=== PATIENT | male | born 1955 | race Caucasian/White ===

== ENCOUNTER → 2019-01-13 09:17 | Outpatient (CLI) | payer MEDICARE, OTHER, SELFPAY ==
[2019-01-13 12:16] LABS: Absolute Lymphocyte Count 1.78 X10^3/ul (0.83-4.51); Absolute Neutrophil Count 3.3 X10^3/uL (2.0-7.7); Basophil# 0.01 X10^3/uL; Basophil% 0.2 % (0-1); Eosinophil# 0.11 X10^3/uL; Eosinophils% 1.9 % (0-5); Hematocrit 44.9 % (40-54); Hemoglobin 15.1 g/dl (13.0-16.5); Lymphocyte # 1.78 X10^3/ul (4.0); Lymphocyte % 30.5 % (19-41); Mean Corp Hgb Conc 33.6 g/gl (32-36); Mean Corpuscular Hgb 30.1 pg (27.0-32.0); Mean Corpuscular Volume 89.6 fL (80-94); Mean Platelet Vol. 11.3 fl (6.2-12.0); Monocyte# 0.65 X10^3/uL; Monocyte% 11.1 % (0-10); Neutrophil # 3.25 X10^3/uL (2.7-7.7); Neutrophil % 55.8 % (47-70); Platelet Count 211 K/mm3 (150-450); RBC Distribution Width CV 13.3 % (11.6-14.6); RBC Distribution Width SD 43.2 fl (35.1-43.9); Red Blood Count 5.01 M/mm3 (4.6-6.2); White Blood Count 5.8 K/mm3 (4.4-11.0)
[2019-01-13 12:18] LABS: POSITIVE COUNT NO; POSITIVE DIFFERENTIAL NO; POSITIVE MORPHOLOGY NO
[2019-01-13 12:39] LABS: ALB/GLOB Ratio 0.9 RATIO (0.9-2.4); AST(SGOT) 28 U/L (15-37); Alanine Aminotransfer ALT/SGPT 52 U/L (16-61); Albumin, Serum 3.6 g/dL (3.2-5.0); Alkaline Phosphatase 66 U/L (45-117); Anion Gap 10 (5-15); BUN 23 mg/dL (7-18); Calcium,Total 8.8 mg/dL (8.5-10.1); Chloride 106 mmol/L (98-107); Cholesterol 191 mg/dL (200); Creatinine, Serum 1.28 mg/dL (0.70-1.30); EST Glomerular Filtration Rate 60 mL/min (>60); Est Glom Filt Rate - Afr Amer 73 mL/min (>60); Globulin 3.8 g/dL (2.2-4.2); Glucose 106 mg/dL (74-106); High Density Lipoprotein 33 mg/dL; PSA,Total - Annual Screen 1.37 ng/mL (0.00-4.00); Potassium 4.3 mmol/L (3.5-5.1); Protein, Total 7.4 g/dL (6.4-8.2); Sodium Level 141 mmol/L (136-145); Triglycerides 369 mg/dL; Very Low Density Lipoprotein 74 mg/dL (5-40)
== END ==
PROVIDERS: Family Provider Family Medicine; PCP Family Medicine; Visit Provider Family Medicine
DX: I10 Essential (primary) hypertension (principal); E78.5 Hyperlipidemia, unspecified; Z12.5 Encounter for screening for malignant neoplasm of prostate
CPT/HCPCS: 36415; 80053; 80061; 84153; 85025; G0103

== ENCOUNTER → 2019-01-15 08:09 | Outpatient (CLI) | payer MEDICARE, OTHER, SELFPAY ==
[2018-02-12 15:33] VITALS: BMI 31.9
--- NOTE | 2019-01-15 08:12 | US_ITS ---
PROCEDURES: ULTRASOUND AORTA REASON FOR EXAM: Male, 63 years old. Abdominal aortic aneurysm screening. History of smoking. TECHNIQUE: Ultrasound evaluation of the aorta was performed with real-time and static renee-scale imaging. COMPARISON: None. FINDINGS: There is no elongation or tortuosity of the abdominal aorta. Aorta measures: Proximal 2.4 cm. Middle 1.2 cm. Distal 1.1 cm. Aorta measure transversely: Proximal 2.5 cm. Middle 1.7 cm. Distal 1.6 cm. Right iliac artery measures: 0.7 cm. Right iliac artery measure transversely: 0.8 cm. Left iliac artery measures: 0.7 cm. Left iliac artery measure transversely: 0.9 cm. Incidental note is made of 2 simple right renal cysts. These measure 5.4 x 4.8 x 4.7 and 6.5 x 6.8 x 7.2. Both of these are anechoic with enhanced through transmission and sharp, smooth and mildly echogenic margins. US/US ABD AORTA SCREEN/AAA IMPRESSION: No sonographically evident abdominal aortic aneurysm or focal ectasia. Incidental note of large simple right renal cysts as above. Electronically Signed: Laureano Luna MD at 7:32 EDT , Service support ,
== END ==
PROVIDERS: Family Provider Family Medicine; PCP Family Medicine; Referring Provider Family Medicine; Visit Provider Family Medicine
DX: I10 Essential (primary) hypertension (principal); Z13.6 Encounter for screening for cardiovascular disorders
CPT/HCPCS: 76706

== ENCOUNTER 2019-01-21 06:25 | Day surgery (SDC) | payer MEDICARE, OTHER, SELFPAY ==
[2019-01-21] VITALS (7 sets, daily range): BP systolic 93–128; BP diastolic 72–90; PULSE 80–109; RESP 16; TEMP 36.2–36.6; O2SAT 93–97; BMI 31.9
--- NOTE | 2019-01-21 07:29 | PCM.HP.STD ---
Problem List (1) Screening for colon cancer Status: Acute History of Present Illness Date of Admission: 01/21/19 The patient is a 63 year old M who presents for screening colonoscopy. He has never had a colonoscopy in the past. Past Medical History Medical History: Medical History (Last Reviewed 01/21/19 @ 07:29 by Isac Woodard MD) History of pneumothorax Z87.09 Osteoarthritis M19.90 Ventral hernia with bowel obstruction K43.6 Hypertension I10 Allergies No Known Allergies Allergy (Verified 09/28/17 11:51) Home Medications: Ambulatory Orders Medication Instructions Recorded Lisinopril [Zestril] 40 mg PO DAILY 04/09/17 Surgical History: Surgical History (Last Reviewed 01/21/19 @ 07:29 by Isac Woodard MD) H/O hernia repair Z98.890, Z87.19 ventral hernia repair 2017 Smoking Status: Former smoker - *Family History Maternal History Items: No pertinent history Review of Systems Constitutional: Denies: Chills, Fever, Weight Change Cardiovascular: Denies: Chest Pain, Chest Pressure, Chest Tightness, Palpitations Respiratory: Denies: Cough, Hemoptysis, Shortness of breath at rest, Shortness of breath upon exertion, Wheezing Gastrointestinal: Denies: Abdominal Pain, Constipation, Diarrhea, Hematemesis, Nausea, Melena, Vomiting VTE Information - Inpt Only VTE Present on Admission: No VTE Mechan Device Prophylaxis: None VTE Pharm Prophylaxis ordered?: No Reason prophylaxis not ordered:: Treatment Not Indicated Patient Problems: Active and Suspected Problems (Last Updated 02/13/18 @ 13:02 by Alison Pereira NP-Tony) Screening for colon cancer (Acute) - Physical Exam General: Alert, Oriented x3 Lungs: Clear to auscultation Cardiovascular: Regular rate, Regular Rhythm, No murmurs Abdomen: Bowel Sounds Present, Soft, Non Tender, Non-Distended Vital Signs Temp Pulse Resp BP Pulse Ox 97.9 F 109 H 16 103/90 H 97 01/21/19 06:46 01/21/19 06:46 01/21/19 06:46 01/21/19 06:46 01/21/19 06:46 Oxygen Delivery Method Room Air Weight: 210 lb Body Mass Index (BMI) 31.9 Assessment/Plan All Active Problems (Last Updated 02/13/18 @ 13:02 by Alison Pereira NP-C) Screening for colon cancer (Acute) Otitis media, right (Acute) Hyperkeratosis (Acute) Incarcerated ventral hernia (Acute) My plan is to perform a colonoscopy. Risk and benefits to include bleeding possible perforation of the colon up to and including have been discussed patient agrees to proceed.
--- NOTE | 2019-01-21 07:58 | OP.ENDO_ITS ---
01/21/2019 Lianne Pascal [place] [id number] [address] Re : Colonoscopy procedure for Riley Dorado Dear Dr. Pascal This procedure was performed on Monday, January 21, 2019. My impressions and recommendations are as follows: Impressions : - Diverticulosis in the sigmoid colon. No specimens collected. - Non-bleeding internal hemorrhoids. - The examination was otherwise normal. Recommendations : - Discharge patient to home. - Resume previous diet. - Continue present medications. - Repeat colonoscopy in 10 years for screening purposes. - Return to primary care physician (date not yet determined). My findings are described in the full procedure note, which is enclosed. If I can be of further assistance, please feel free to contact me at Doctor phone number(s): , Fax: [phone], Work: . Sincerely, MD Isac Connelly MD 01/21/2019 7:57:26 AM This report has been signed electronically.
== END 2019-01-21 08:49 | disposition home or self-care (01) ==
LOC: EN 06:26 → AC 06:26
PROVIDERS: Family Provider Family Medicine; PCP Family Medicine; Referring Provider Family Medicine; Visit Provider Surgery
PROC: 0DJD8ZZ Inspection of Lower Intestinal Tract, Via Natural or Artificial Opening Endoscopic (ICD-10-PCS; CPT 45378; principal; 2019-01-21 07:25)
DX: Z12.11 Encounter for screening for malignant neoplasm of colon (principal); K57.30 Diverticulosis of large intestine without perforation or abscess without bleeding; K64.8 Other hemorrhoids; I10 Essential (primary) hypertension; M19.90 Unspecified osteoarthritis, unspecified site; Z87.891 Personal history of nicotine dependence
CPT/HCPCS: G0121; J7120

== ENCOUNTER → 2019-04-10 08:53 | Outpatient (CLI) | payer MEDICARE, OTHER, SELFPAY ==
[2019-01-21 06:46] VITALS: BMI 31.9
[2019-04-10 13:02] LABS: Cholesterol 167 mg/dL (200); High Density Lipoprotein 38 mg/dL; Triglycerides 139 mg/dL; Very Low Density Lipoprotein 28 mg/dL (5-40)
== END ==
PROVIDERS: Family Provider Family Medicine; PCP Family Medicine; Visit Provider Family Medicine
DX: E78.5 Hyperlipidemia, unspecified (principal)
CPT/HCPCS: 36415; 80061

== ENCOUNTER → 2020-03-30 08:09 | Outpatient (CLI) | payer MEDICARE, SELFPAY ==
[2019-01-21 06:46] VITALS: BMI 31.9
[2020-03-30 12:54] LABS: Absolute Lymphocyte Count 1.73 X10^3/uL (0.83-4.51); Basophil# 0.03 X10^3/uL; Basophil% 0.5 % (0-1); Eosinophil# 0.12 X10^3/uL; Eosinophils% 2.1 % (0-5); Hematocrit 45.6 % (40-54); Hemoglobin 14.9 g/dL (13.0-16.5); Lymphocyte # 1.73 X10^3/ul (4.0); Lymphocyte % 30.5 % (19-41); Mean Corp Hgb Conc 32.7 g/dL (32-36); Mean Corpuscular Hgb 30.8 pg (27.0-32.0); Mean Corpuscular Volume 94.2 fL (80-94); Mean Platelet Vol. 11.3 fl (6.2-12.0); Monocyte# 0.77 X10^3/uL; Monocyte% 13.6 % (0-10); NRBC Flagged by Analyzer 0 % (0-5); Neutrophil # 3.02 X10^3/uL (2.7-7.7); Neutrophil % 53.1 % (47-70); Platelet Count 253 K/mm3 (150-450); RBC Distribution Width CV 13.1 % (11.6-14.6); RBC Distribution Width SD 44.9 fl (35.1-43.9); Red Blood Count 4.84 M/mm3 (4.6-6.2); White Blood Count 5.7 K/mm3 (4.4-11.0)
[2020-03-30 13:15] LABS: AST(SGOT) 26 U/L (15-37); Alanine Aminotransfer ALT/SGPT 46 U/L (16-61); Albumin, Serum 3.7 g/dL (3.2-5.0); Alkaline Phosphatase 71 U/L (45-117); Anion Gap 7 (5-15); BUN 26 mg/dL (7-18); BUN/Creat Ratio 19.5 RATIO (10-20); Calcium,Total 8.6 mg/dL (8.5-10.1); Chloride 108 mmol/L (98-107); Cholesterol 205 mg/dL (200); Creatinine, Serum 1.33 mg/dL (0.70-1.30); EST Glomerular Filtration Rate 57 mL/min (>60); Est Glom Filt Rate - Afr Amer 69 mL/min (>60); Globulin 3.7 g/dL (2.2-4.2); Glucose 111 mg/dL (74-106); High Density Lipoprotein 35 mg/dL; Potassium 4.1 mmol/L (3.5-5.1); Protein, Total 7.4 g/dL (6.4-8.2); Sodium Level 138 mmol/L (136-145); Triglycerides 300 mg/dL; Very Low Density Lipoprotein 60 mg/dL (5-40)
== END ==
PROVIDERS: PCP Family Medicine; Visit Provider Family Medicine
DX: I10 Essential (primary) hypertension (principal); E78.5 Hyperlipidemia, unspecified
CPT/HCPCS: 36415; 80053; 80061; 85025

== ENCOUNTER 2021-02-22 14:22 | Outpatient (RCR) | payer MEDICARE, SELFPAY ==
[2019-01-21 06:46] VITALS: BMI 31.9
== END 2021-04-07 23:59 ==
LOC: IMMUN 14:22
PROVIDERS: PCP Family Medicine; Visit Provider Family Medicine
DX: Z23 Encounter for immunization (principal)
CPT/HCPCS: 0001A; 91300

== ENCOUNTER → 2021-04-12 07:11 | Outpatient (CLI) | payer MEDICARE, SELFPAY ==
[2019-01-21 06:46] VITALS: BMI 31.9
[2021-04-12 10:12] LABS: Absolute Lymphocyte Count 2.21 X10^3/uL (0.83-4.51); Absolute Neutrophil Count 3.5 X10^3/uL (2.0-7.7); Basophil# 0.03 X10^3/uL; Basophil% 0.4 % (0-1); Eosinophil# 0.17 X10^3/uL; Eosinophils% 2.5 % (0-5); Hematocrit 44.7 % (40-54); Hemoglobin 14.9 g/dL (13.0-16.5); Lymphocyte # 2.21 X10^3/ul (0.83-4.51); Lymphocyte % 32.7 % (19-41); Mean Corp Hgb Conc 33.3 g/dL (32-36); Mean Corpuscular Hgb 30.5 pg (27.0-32.0); Mean Corpuscular Volume 91.4 fL (80-94); Monocyte# 0.86 X10^3/uL; Monocyte% 12.7 % (0-10); NRBC Flagged by Analyzer 0 % (0-5); Neutrophil # 3.45 X10^3/uL (2.7-7.7); Neutrophil % 51.3 % (47-70); Platelet Count 260 K/mm3 (150-450); RBC Distribution Width CV 13.1 % (11.6-14.6); RBC Distribution Width SD 43.9 fl (35.1-43.9); Red Blood Count 4.89 M/mm3 (4.6-6.2); White Blood Count 6.8 K/mm3 (4.4-11.0)
[2021-04-12 10:35] LABS: ALB/GLOB Ratio 0.9 RATIO (0.9-2.4); AST(SGOT) 19 U/L (15-37); Alanine Aminotransfer ALT/SGPT 42 U/L (16-61); Albumin, Serum 3.5 g/dL (3.2-5.0); Alkaline Phosphatase 75 U/L (45-117); Anion Gap 5 (5-15); BUN 19 mg/dL (7-18); BUN/Creat Ratio 15.6 RATIO (10-20); Calcium,Total 8.7 mg/dL (8.5-10.1); Chloride 107 mmol/L (98-107); Cholesterol 221 mg/dL (200); Creatinine, Serum 1.22 mg/dL (0.70-1.30); EST Glomerular Filtration Rate 63 mL/min (>60); Est Glom Filt Rate - Afr Amer 76 mL/min (>60); Globulin 3.8 g/dL (2.2-4.2); Glucose 107 mg/dL (74-106); High Density Lipoprotein 35 mg/dL; PSA,Total - Annual Screen 5.06 ng/mL (0.00-4.00); Potassium 3.9 mmol/L (3.5-5.1); Protein, Total 7.3 g/dL (6.4-8.2); Sodium Level 139 mmol/L (136-145); Triglycerides 304 mg/dL; Very Low Density Lipoprotein 61 mg/dL (5-40)
[2021-04-12 10:37] LABS: Hemoglobin A1c 6.1 % (3.8-5.6)
== END ==
PROVIDERS: PCP Family Medicine; Referring Provider Family Medicine; Visit Provider Family Medicine
DX: I10 Essential (primary) hypertension (principal); Z12.5 Encounter for screening for malignant neoplasm of prostate; R73.01 Impaired fasting glucose; E78.5 Hyperlipidemia, unspecified
CPT/HCPCS: 36415; 80053; 80061; 83036; 84153; 85025; G0103

== ENCOUNTER → 2021-04-14 09:05 | Outpatient (CLI) | payer MEDICARE, SELFPAY ==
[2019-01-21 06:46] VITALS: BMI 31.9
[2021-04-16 11:08] LABS: PSA, Free 1.02 ng/mL; PSA, Free % 20.4 % (.)
== END ==
PROVIDERS: PCP Family Medicine; Referring Provider Family Medicine; Visit Provider Family Medicine
DX: R97.20 Elevated prostate specific antigen [PSA] (principal)
CPT/HCPCS: 36415; 84153; 84154

== ENCOUNTER → 2021-06-12 16:24 | Outpatient (CLI) | payer MEDICARE, SELFPAY ==
--- NOTE | 2021-06-12 | IMM_PTH ---
PATIENT: KENNETH VÁZQUEZ LOC: [facility] U#:[id number] AGE/SX: 70/M ROOM: RE06/12/[address]: Dr. Tavon Wise MD : 1955 BED: DIS: SPEC #: [id number] RECD: 06/14/21 12:02 STATUS: DOUGLAS REDaniele #: [id number] JESSE: 06/12/21 00:[address]: Tavon Wise DEPT: IMMUNOHISTOCHEMISTRY RECD BY: Kylie Melendez ENTERED: 06/14/21 12:04 SP TYPE: IMMUNO OTHR DR: Dr. Lianne Pascal MD Tissues: D - PROSTATE LEFT Procedures: P40 (add) 34BE12 (initial) PHYSICIAN & INSTITUTION [place] [id number] SPECIMEN INFORMATION: Tissue Source: D - Left prostate, apex, core biopsy Clinical Info: Elevated PSA Specimen Number: [id number] CPT code: 05199, 51198 METHODOLOGY: Deparaffinized sections of prefer/formalin-fixed tissue or PAP/DQ stained slides are incubated with monoclonal/polyclonal antibodies/oligonucleotide probes. Localization is made via biotin free immunoperoxidase method. Appropriate controls are performed and reacted as expected. Results on target cell population are indicated in the following table: RESULTS: ANTIBODY / CLONE RESULT Block D P40 (BC28) negative 34BE12 (34BE12) negative These tests were developed and their performance characteristics determined by [facility]. They may not have been cleared or approved by the U.S. Food and Drug Administration. The FDA has determined that such clearance or approval is not necessary. The above immunohistochemical/dualISH markers are ordered and reviewed by the Pathologist. INTERPRETATION: Joseph Left prostate, apex, core biopsy: Focal atypical small acinar proliferation. AM:renee 06/15/2021
--- NOTE | 2021-06-12 10:45 | PROSBIL_PTH ---
PATIENT: KENNETH VÁZQUEZ LOC: [facility] U#:[id number] AGE/SX: 70/M ROOM: RE06/12/[address]: Dr. Tavon Wise MD : 1955 BED: DIS: SPEC #: [id number] RECD: 06/13/21 08:45 STATUS: DOUGLAS REDaniele #: [id number] JESSE: 06/12/21 10:[address]: Tavon Wise DEPT: SURGICAL PATHOLOGY RECD BY: Diamond Clancy ENTERED: 06/13/21 08:45 SP TYPE: PROST BX AMANDA DR: Dr. Lianne Pascal MD Tissues: A - PROSTATE RIGHT B - PROSTATE RIGHT C - PROSTATE RIGHT D - PROSTATE LEFT E - PROSTATE LEFT F - PROSTATE LEFT Procedures: PROSTATE BX HEADER OPERATION: Prostate biopsy PRE-OP DIAGNOSIS: Elevated PSA TISSUE SUBMITTED: A - Right apex, B - Right mid, C - Right base, D - Left apex, E - Left mid, F - Left base MICROSCOPIC DIAGNOSIS A. Right prostate, apex, core biopsy: Benign prostatic tissue. B. Right prostate, mid, core biopsy: Focal acute prostatitis. C. Right prostate, base, core biopsy: Acute prostatitis. D. Left prostate, apex, core biopsy: Focal atypical small acinar proliferation. See comment. E. Left prostate, mid, core biopsy: Benign prostatic tissue. F. Left prostate, base, core biopsy: Focal acute prostatitis. AM:renee 06/14/2021 COMMENT D. Immunohistochemistry ([id number]) supports the above diagnosis. Case has been reviewed in consultation with Dr. Worley who concurs with the above diagnosis. IDC:SJ MICROSCOPIC DESCRIPTION Slides are reviewed. GROSS DESCRIPTION A - Received is one container designated prostate, right apex. The specimen consists of one elongated fragment of light lópez-white soft tissue measuring 1.5 cm in length and 0.1 cm in diameter. The specimen is totally submitted in one cassette. B - Received is one container designated prostate, right mid. The specimen consists of two elongated fragments of light lópez-white soft tissue each measuring 1.5 cm in length and 0.1 cm in diameter. The specimen is totally submitted in one cassette. C - Received is one container designated prostate, right base. The specimen consists of two elongated fragments of light lóepz-white soft tissue each measuring 1 cm in length and 0.1 cm in diameter. The specimen is totally submitted in one cassette. D - Received is one container designated prostate, left apex. The specimen consists of one elongated fragment of light lópez-white soft tissue measuring 1 cm in length and 0.1 cm in diameter. The specimen is totally submitted in one cassette. E - Received is one container designated prostate, left mid. The specimen consists of two elongated fragments of light lópez-white soft tissue each measuring 1.5 cm in length and 0.1 cm in diameter. The specimen is totally submitted in one cassette. F - Received is one container designated prostate, left base. The specimen consists of two elongated fragments of light lópez-white soft tissue each measuring 1 cm in length and 0.1 cm in diameter. The specimen is totally submitted in one cassette. / AM:renee 06/13/21 TC:2 CPT: G0146
== END ==
PROVIDERS: PCP Family Medicine; Referring Provider Urology; Visit Provider Urology
DX: R97.20 Elevated prostate specific antigen [PSA] (principal)
CPT/HCPCS: 88305; 88341; 88342; G0416

== ENCOUNTER 2021-12-28 15:01 | Outpatient (CLI) | payer MEDICARE, SELFPAY ==
[2021-12-28 18:34] LABS: PSA,Total- Diagnostic 3.23 ng/mL (0.0-4.0)
== END 2021-12-28 23:59 | disposition home or self-care (01) ==
LOC: MTLAB 15:03
PROVIDERS: PCP Family Medicine; Referring Provider Urology; Visit Provider Urology
DX: R97.20 Elevated prostate specific antigen [PSA] (principal)
CPT/HCPCS: 36415; 84153

== ENCOUNTER → 2022-05-08 | Outpatient (CLI) | payer MEDICARE, SELFPAY ==
--- NOTE | 2022-05-08 09:00 | RAD_ITS ---
STUDY: X-RAY - PELVIS AND LEFT HIP REASON FOR EXAM: Male, 66 years old. Left hip pain. TECHNIQUE: 3 views of the pelvis and hip. COMPARISON: None. FINDINGS: There is a non-specific bowel gas pattern. Normal visualized soft tissue structures. Degenerative changes of the lower lumbar spine. Normal bilateral iliac wings, sacroiliac joints and visualized sacrum. Normal bilateral superior and inferior pubic rami. Normal pubic symphysis. Normal bilateral ischial tuberosities. Normal visualized femoral head. Normal acetabulum. There is moderate articular joint space narrowing of the hip. RAD/HIP, UNI W/ Pelvis 2-3 Views IMPRESSION: Degenerative changes of lumbar spine and left hip. There is no acute fracture or dislocation. Electronically Signed: Mike Miller DO at 21:36 EDT ,
[2022-05-08 10:31] LABS: Absolute Lymphocyte Count 2.29 X10^3/uL (0.83-4.51); Basophil# 0.05 X10^3/uL; Basophil% 0.8 % (0-1); Eosinophil# 0.19 X10^3/uL; Hematocrit 44.7 % (40-54); Hemoglobin 15.3 g/dL (13.0-16.5); Lymphocyte # 2.29 X10^3/ul (0.83-4.51); Lymphocyte % 36.3 % (19-41); Mean Corp Hgb Conc 34.2 g/dL (32-36); Mean Corpuscular Hgb 31.9 pg (27.0-32.0); Mean Corpuscular Volume 93.1 fL (80-94); Mean Platelet Vol. 10.7 fl (6.2-12.0); Monocyte# 0.75 X10^3/uL; Monocyte% 11.9 % (0-10); NRBC Flagged by Analyzer 0 % (0-5); Neutrophil # 3.02 X10^3/uL (2.7-7.7); Neutrophil % 47.8 % (47-70); Platelet Count 246 K/mm3 (150-450); RBC Distribution Width CV 12.7 % (11.6-14.6); RBC Distribution Width SD 43.5 fl (35.1-43.9); White Blood Count 6.3 K/mm3 (4.4-11.0)
[2022-05-08 11:06] LABS: ALB/GLOB Ratio 0.9 RATIO (0.9-2.4); AST(SGOT) 24 U/L (15-37); Alanine Aminotransfer ALT/SGPT 50 U/L (16-61); Albumin, Serum 3.6 g/dL (3.2-5.0); Alkaline Phosphatase 64 U/L (45-117); Anion Gap 5 (5-15); BUN 30 mg/dL (7-18); BUN/Creat Ratio 18.3 RATIO (10-20); Calcium,Total 9.3 mg/dL (8.5-10.1); Chloride 110 mmol/L (98-107); Cholesterol 225 mg/dL (200); Creatinine, Serum 1.64 mg/dL (0.70-1.30); EST Glomerular Filtration Rate 45 mL/min (>60); Est Glom Filt Rate - Afr Amer 54 mL/min (>60); Glucose 125 mg/dL (74-106); High Density Lipoprotein 34 mg/dL; Potassium 4.3 mmol/L (3.5-5.1); Protein, Total 7.6 g/dL (6.4-8.2); Sodium Level 139 mmol/L (136-145); Triglycerides 405 mg/dL
== END | disposition home or self-care (01) ==
LOC: MTLAB 08:41
PROVIDERS: PCP Family Medicine; Referring Provider Family Medicine; Visit Provider Family Medicine
DX: Z00.00 Encounter for general adult medical examination without abnormal findings (principal); I10 Essential (primary) hypertension; R73.01 Impaired fasting glucose; E78.5 Hyperlipidemia, unspecified; M25.559 Pain in unspecified hip
CPT/HCPCS: 36415; 73502; 80053; 80061; 85025

== ENCOUNTER → 2022-08-01 | Outpatient (CLI) | payer MEDICARE, SELFPAY ==
[2022-08-01 12:46] LABS: Cholesterol 222 mg/dL (200); High Density Lipoprotein 36 mg/dL; Triglycerides 343 mg/dL; Very Low Density Lipoprotein 69 mg/dL (5-40)
== END | disposition home or self-care (01) ==
LOC: BFHLAB 08:10
PROVIDERS: PCP Family Medicine; Visit Provider Family Medicine
DX: E78.5 Hyperlipidemia, unspecified (principal)
CPT/HCPCS: 36415; 80061

== ENCOUNTER → 2022-11-02 | Outpatient (CLI) | payer MEDICARE, SELFPAY ==
[2022-11-02 12:36] LABS: ALB/GLOB Ratio 0.9 RATIO (0.9-2.4); AST(SGOT) 31 U/L (15-37); Alanine Aminotransfer ALT/SGPT 52 U/L (16-61); Albumin, Serum 3.8 g/dL (3.2-5.0); Alkaline Phosphatase 42 U/L (45-117); Anion Gap 7 (5-15); BUN 23 mg/dL (7-18); BUN/Creat Ratio 12.8 RATIO (10-20); Calcium,Total 9.6 mg/dL (8.5-10.1); Chloride 109 mmol/L (98-107); Cholesterol 205 mg/dL (200); Creatinine, Serum 1.79 mg/dL (0.70-1.30); EST Glomerular Filtration Rate 40 mL/min (>60); Est Glom Filt Rate - Afr Amer 49 mL/min (>60); Globulin 4.2 g/dL (2.2-4.2); Glucose 121 mg/dL (74-106); High Density Lipoprotein 39 mg/dL; Potassium 4.5 mmol/L (3.5-5.1); Sodium Level 142 mmol/L (136-145); Triglycerides 257 mg/dL; Very Low Density Lipoprotein 51 mg/dL (5-40)
[2022-11-02 12:46] LABS: Absolute Lymphocyte Count 1.77 X10^3/uL (0.83-4.51); Absolute Neutrophil Count 5.3 X10^3/uL (2.0-7.7); Basophil# 0.06 X10^3/uL; Basophil% 0.7 % (0-1); Eosinophil# 0.23 X10^3/uL; Eosinophils% 2.8 % (0-5); Hematocrit 45.9 % (40-54); Hemoglobin 14.7 g/dL (13.0-16.5); Lymphocyte # 1.77 X10^3/ul (0.83-4.51); Lymphocyte % 21.6 % (19-41); Mean Corpuscular Hgb 31.1 pg (27.0-32.0); Mean Platelet Vol. 11.4 fl (6.2-12.0); Monocyte# 0.81 X10^3/uL; Monocyte% 9.9 % (0-10); NRBC Flagged by Analyzer 0 % (0-5); Neutrophil # 5.29 X10^3/uL (2.7-7.7); Neutrophil % 64.6 % (47-70); Platelet Count 296 K/mm3 (150-450); RBC Distribution Width CV 13.1 % (11.6-14.6); Red Blood Count 4.73 M/mm3 (4.6-6.2); White Blood Count 8.2 K/mm3 (4.4-11.0)
== END | disposition home or self-care (01) ==
LOC: BFHLAB 09:22
PROVIDERS: PCP Family Medicine; Visit Provider Family Medicine
DX: E11.9 Type 2 diabetes mellitus without complications (principal); I10 Essential (primary) hypertension; E78.5 Hyperlipidemia, unspecified
CPT/HCPCS: 36415; 80053; 80061; 85025

== ENCOUNTER → 2022-12-31 | Outpatient (CLI) | payer MEDICARE, SELFPAY ==
[2022-12-31 17:41] LABS: PSA,Total- Diagnostic 1.45 ng/mL (0.0-4.0)
== END | disposition home or self-care (01) ==
LOC: MTLAB 11:40
PROVIDERS: PCP Family Medicine; Referring Provider Urology; Visit Provider Urology
DX: R97.20 Elevated prostate specific antigen [PSA] (principal)
CPT/HCPCS: 36415; 84153

== ENCOUNTER → 2023-04-29 | Outpatient (CLI) | payer MEDICARE, SELFPAY ==
[2023-04-29 10:15] LABS: Absolute Lymphocyte Count 1.78 X10^3/uL (0.83-4.51); Absolute Neutrophil Count 3.1 X10^3/uL (2.0-7.7); Basophil# 0.05 X10^3/uL; Basophil% 0.8 % (0-1); Eosinophils% 3.3 % (0-5); Hematocrit 41.3 % (40-54); Hemoglobin 13.7 g/dL (13.0-16.5); Lymphocyte # 1.78 X10^3/ul (0.83-4.51); Lymphocyte % 29.5 % (19-41); Mean Corp Hgb Conc 33.2 g/dL (32-36); Mean Corpuscular Hgb 31.6 pg (27.0-32.0); Mean Corpuscular Volume 95.4 fL (80-94); Mean Platelet Vol. 11.1 fl (6.2-12.0); Monocyte# 0.84 X10^3/uL; Monocyte% 13.9 % (0-10); NRBC Flagged by Analyzer 0 % (0-5); Neutrophil # 3.14 X10^3/uL (2.7-7.7); Platelet Count 252 K/mm3 (150-450); RBC Distribution Width CV 13.3 % (11.6-14.6); RBC Distribution Width SD 46.5 fl (35.1-43.9); Red Blood Count 4.33 M/mm3 (4.6-6.2)
[2023-04-29 10:35] LABS: ALB/GLOB Ratio 0.9 RATIO (0.9-2.4); AST(SGOT) 25 U/L (15-37); Alanine Aminotransfer ALT/SGPT 42 U/L (16-61); Albumin, Serum 3.5 g/dL (3.2-5.0); Alkaline Phosphatase 35 U/L (45-117); Anion Gap 7 (5-15); BUN 27 mg/dL (7-18); BUN/Creat Ratio 15.9 RATIO (10-20); Chloride 109 mmol/L (98-107); Cholesterol 204 mg/dL (200); EST Glomerular Filtration Rate 43 mL/min (>60); Est Glom Filt Rate - Afr Amer 52 mL/min (>60); Globulin 3.9 g/dL (2.2-4.2); Glucose 113 mg/dL (74-106); High Density Lipoprotein 34 mg/dL; Potassium 4.4 mmol/L (3.5-5.1); Protein, Total 7.4 g/dL (6.4-8.2); Sodium Level 142 mmol/L (136-145); Triglycerides 366 mg/dL; Very Low Density Lipoprotein 73 mg/dL (5-40)
[2023-04-29 10:42] LABS: Microalbumin,Random Urine 66.8 mg/L (NO RANGE EST.); Microalbumin:Creatinine Ratio 38.6 mg/g CRE (<30 mg/g CRE)
== END | disposition home or self-care (01) ==
LOC: MTLAB 07:56
PROVIDERS: PCP Family Medicine; Referring Provider Family Medicine; Visit Provider Family Medicine
DX: E11.9 Type 2 diabetes mellitus without complications (principal); I10 Essential (primary) hypertension; E78.5 Hyperlipidemia, unspecified
CPT/HCPCS: 36415; 80053; 80061; 82043; 82570; 85025

== ENCOUNTER → 2023-11-20 | Outpatient (CLI) | payer MEDICARE, SELFPAY ==
--- NOTE | 2023-11-20 08:12 | MRI_ITS ---
STUDY: MRI LEFT MIDFOOT, WITHOUT AND WITH IV CONTRAST REASON FOR EXAM: Male, 68 years old. Soft tissue mass/fluid accumulation base of first and second metatarsal. TECHNIQUE: Standardized fat and water weighted pulse sequences were obtained in all 3 orthogonal planes. Following the intravenous administration of 19 mL Clariscan contrast, additional postcontrast imaging was obtained. COMPARISON: None. FINDINGS: In the subcutaneous fat dorsal to the space between the bases of the first and second metatarsals, there is a vascular lesion with fluid-hematocrit layer, overall measuring 1.3 cm AP, 2.0 cm transverse, and 0.8 cm craniocaudad. Following IV contrast administration there is dependent internal enhancement. The overall imaging findings are compatible with a small venous malformation or focal venous varix. Normal talonavicular articulation. Normal calcaneocuboid articulation. Normal navicular-cuneiform articulations. Normal intercuneiform articulations. Normal first tarsometatarsal articulation. Normal Lisfranc ligament. Normal second and third tarsometatarsal articulations. Normal cuboid fourth and cuboid fifth tarsometatarsal articulation. Normal first through fifth metatarsi. There is no demonstrated fracture of the metatarsal bones. Normal tibialis anterior tendon. Normal extensor hallucis longus tendon. Normal extensor digitorum longus tendons. Normal peroneus longus tendon and distal insertion. Normal peroneus brevis tendon and distal insertion. Normal intrinsic muscles of the mid and forefoot region. Normal extensor digitorum brevis muscle. There is mild subcutaneous soft tissue edema along the dorsum of the foot. MRI/Lower Ext No Joint W/WO Cont IMPRESSION: 1.3 x 2.0 x 0.8 cm small venous malformation or focal venous varix in the dorsal forefoot. Mild subcutaneous soft tissue edema along the dorsum of the foot. Electronically Signed: Rob Santoro MD at 11:00 EST ,
--- OUTSIDE RECORDS SUMMARY | 2023-11-20 08:16 | XMS RPT_ITS | CCD ---
Author Name Unknown Address [address] [place] [address] Organization [facility] Care Team Providers Care Complaint Specialist Name Role Phone Emil Triplett MD Unavailable [phone] Suni Ramos Unavailable Unavailable Medications Completed/Discontinued Medications Medication Drug Class(es) Dates Sig (Normalized) Sig (Original) lisinopril 40 mg oral tablet (4 sources) Angiotensin Converting Enzyme Inhibitor Start: 11-19-2016 LISINOPRIL 40 MG TABS LISINOPRIL [id number] Riley Blake MULTIPLE VITAMINS-MINERALS (1 source) Start: 11-19-2016 MULTIVITAMIN ADULT TABS MULTIPLE VITAMINS-MINERALS [id number] Riley Blake MULTIPLE VITAMINS-MINERALS (3 sources) Start: 11-19-2016 MULTIVITAMIN ADULT TABS MULTIPLE VITAMINS-MINERALS [id number] Riley Blake naproxen 500 mg oral tablet (4 sources) Nonsteroidal Anti-inflammatory Drug Start: 11-19-2016 NAPROXEN 500 MG TABS NAPROXEN [id number] Riley Blake Problems Active Problems Problem Classification Problem Date Documented Da te Episodic/Chronic Joint disorders and dislocations; trauma-related (4 sources) Derangement of knee; Translations: [Other internal derangements of right knee] Onset: 11-19-2016 11-30-2016 Chronic Osteoarthritis (4 sources) Arthritis; Translations: [Unspecified osteoarthritis, unspecified site] Onset: 03-11-2017 03-11-2017 Chronic Past or Other Problems Problem Classification Problem Date Documented Da te Episodic/Chronic Abdominal hernia (4 sources) Other and unspecified ventral hernia with obstruction, without gangrene; Translations: [Other and unspecified ventral hernia with obstruction, without gangrene] Onset: 03-11-2017 03-11-2017 Episodic Other connective tissue disease (4 sources) Synovial cyst of popliteal space; Translations: [Synovial cyst of popliteal space [[place]], unspecified knee] Onset: 11-19-2016 11-30-2016 Episodic Other non-traumatic joint disorders (4 sources) Knee pain; Translations: [Pain in right knee] Onset: 11-19-2016 11-19-2016 Episodic Sprains and strains (4 sources) Sprain of medial collateral ligament of right knee, initial encounter; Translations: [Sprain of medial collateral ligament of right knee, initial encounter] Onset: 11-19-2016 11-30-2016 Episodic Results Test Name Value Interpretation Reference Range Facil ity Vital Signs Date Time Vital Sign Value Performing Clinician Facility 03-11-2017 15:03-0400 BMI (Body Mass Index) 30.32 kg/m2 Emil Triplett MD [facility] Work Phone: 03-11-2017 15:03-0400 Body Temperature 98.8 [degF] Emil Triplett MD [facility] Work Phone: 03-11-2017 15:03-0400 BP Diastolic 83 mm[Hg] Emil Triplett MD [facility] Work Phone: 03-11-2017 15:03-0400 BP Systolic 144 mm[Hg] Emil Triplett MD [facility] Work Phone: 03-11-2017 15:03-0400 Height 172.72 cm Emil Triplett MD [facility] Work Phone: 03-11-2017 15:03-0400 Pulse (Heart Rate) 68 /min Emil Triplett MD [facility] Work Phone: 03-11-2017 15:03-0400 Pulse Oximetry 98 % Emil Triplett MD [facility] Work Phone: 03-11-2017 15:03-0400 Respiratory Rate 20 /min Emil Triplett MD [facility] Work Phone: 03-11-2017 15:03-0400 Weight 90.45 kg Emil Triplett MD [facility] Work Phone: 11-19-2016 15:31-0500 Height 172.72 cm Emil Triplett MD [facility] Work Phone: Plan of Treatment Date Care Activity Detail Author Start: 05-02-2017 End: 05-03-2017 Follow-up visit Follow Up as needed [facility] Work Phone: Start: 03-11-2017 End: 03-11-2017 Appointment Appointment [facility] Work Phone: Start: 03-11-2017 End: 03-11-2017 Follow-up visit Follow Up as needed [facility] Work Phone: Start: 11-19-2016 End: 11-19-2016 X-ray exam, knee, 4 or more X-Ray, Knee [facility] Work Phone: Patient Education [id number] [facility] Work Phone: Additional Source Comments FOR RECORDS PERTAINING TO PATIENTS WHO ARE OR HAVE BEEN ENROLLED IN A CHEMICAL DEPENDENCY/SUBSTANCEABUSE PROGRAM, SOME INFORMATION MAY BE OMITTED. This clinical summary was aggregated from multiple sources. Caution should be exercised in using it in the provision of clinical care. This summary normalizes information from multiple sources, and as a consequence, information in this document may materially change the coding, format and clinical context of patient data. In addition, data may be omitted in some cases. CLINICAL DECISIONS SHOULD BE BASED ON THE PRIMARY CLINICAL RECORDS. [facility]. provides no warranty or guarantee of the accuracy or completeness of information in this document.
--- NOTE | 2023-11-20 08:24 | RAD_ITS ---
STUDY: X-RAY - ORBITS REASON FOR EXAM: Male, 68 years old. HX METAL PRE MRI TECHNIQUE: 2 frontal views of the orbits were obtained. COMPARISON: None. FINDINGS: Normal bilateral orbits without a metallic orbital foreign body. Normal visualized facial bones. Normal paranasal sinuses. The soft tissue structures are unremarkable. RAD/Orbits for Foreign Body IMPRESSION: No demonstrated metallic orbital foreign body. The patient is cleared for an MRI examination. Electronically Signed: Rob Santoro MD at 8:40 EST ,
[2023-11-20 08:52] LABS: CREATININE FINGERSTICK 1.4 mg/dL (0.70-1.30)
== END | disposition home or self-care (01) ==
PROVIDERS: PCP Family Medicine; Referring Provider Student in an Organized Health Care Education/Training Program; Visit Provider Student in an Organized Health Care Education/Training Program
DX: R22.42 Localized swelling, mass and lump, left lower limb (principal); M79.672 Pain in left foot
CPT/HCPCS: 70030; 73720; A9575

== ENCOUNTER → 2023-12-26 | Outpatient (CLI) | payer MEDICARE, SELFPAY ==
[2023-12-26 10:22] LABS: Absolute Lymphocyte Count 1.23 X10^3/uL (0.83-4.51); Absolute Neutrophil Count 3.3 X10^3/uL (2.0-7.7); Basophil# 0.03 X10^3/uL; Basophil% 0.6 % (0-1); Eosinophil# 0.19 X10^3/uL; Eosinophils% 3.5 % (0-5); Hematocrit 42.2 % (40-54); Hemoglobin 13.5 g/dL (13.0-16.5); Lymphocyte # 1.23 X10^3/ul (0.83-4.51); Lymphocyte % 22.7 % (19-41); Mean Corpuscular Hgb 29.3 pg (27.0-32.0); Mean Corpuscular Volume 91.7 fL (80-94); Monocyte# 0.69 X10^3/uL; Monocyte% 12.7 % (0-10); NRBC Flagged by Analyzer 0 % (0-5); Neutrophil # 3.27 X10^3/uL (2.7-7.7); Neutrophil % 60.1 % (47-70); Platelet Count 251 K/mm3 (150-450); RBC Distribution Width SD 47.2 fl (35.1-43.9); White Blood Count 5.4 K/mm3 (4.4-11.0)
[2023-12-26 11:09] LABS: ALB/GLOB Ratio 0.9 RATIO (0.9-2.4); AST(SGOT) 29 U/L (15-37); Alanine Aminotransfer ALT/SGPT 41 U/L (16-61); Albumin, Serum 3.6 g/dL (3.2-5.0); Alkaline Phosphatase 36 U/L (45-117); Anion Gap 5 (5-15); BUN 24 mg/dL (7-18); BUN/Creat Ratio 13.8 RATIO (10-20); Calcium,Total 9.2 mg/dL (8.5-10.1); Chloride 109 mmol/L (98-107); Cholesterol 140 mg/dL (200); Creatinine, Serum 1.74 mg/dL (0.70-1.30); EST Glomerular Filtration Rate 41 mL/min (>60); Est Glom Filt Rate - Afr Amer 50 mL/min (>60); Globulin 3.8 g/dL (2.2-4.2); Glucose 117 mg/dL (74-106); High Density Lipoprotein 34 mg/dL; Potassium 4.2 mmol/L (3.5-5.1); Protein, Total 7.4 g/dL (6.4-8.2); Sodium Level 140 mmol/L (136-145); Triglycerides 226 mg/dL; Very Low Density Lipoprotein 45 mg/dL (5-40)
== END | disposition home or self-care (01) ==
LOC: MTLAB 08:03
PROVIDERS: PCP Family Medicine; Referring Provider Family Medicine; Visit Provider Family Medicine
DX: E11.9 Type 2 diabetes mellitus without complications (principal); E78.5 Hyperlipidemia, unspecified; I10 Essential (primary) hypertension
CPT/HCPCS: 36415; 80053; 80061; 83036; 85025

== ENCOUNTER → 2024-04-22 | Outpatient (CLI) | payer MEDICARE, SELFPAY ==
--- NOTE | 2024-04-22 07:52 | CT_ITS ---
STUDY: CT ABDOMEN AND PELVIS WITH CONTRAST REASON FOR EXAM: Male, 68 years old. LLQ PAIN RADIATION DOSAGE (If Supplied By Facility): CTDIvol = ( 15.67 ) mGy, DLP = ( 1099.85 ) mGycm TECHNIQUE: Transaxial images were obtained from the dome of the diaphragm to the symphysis pubis without oral contrast. 100 ML ISOVUE 370 AND REDICAT was administered. Sagittal and coronal images were reconstructed. Individualized dose optimization techniques were used for this CT. COMPARISON: None. FINDINGS: Minimal increased markings in the lateral aspect of the left lower lobe suggestive of scarring. The visualized portions of the heart are within normal limits. There is decreased attenuation of the liver consistent with steatosis. There is a 2.3 cm x 1.7 cm septated cyst in the anterior aspect of the left lobe of the liver. 1 cm cyst is also seen along the medial aspect of the right lobe of the liver. Tiny gallstones are seen along the dependent portion of the gallbladder lumen. Normal spleen. Normal pancreas. Normal bilateral adrenal glands. Several cysts are seen in the right kidney. The largest cyst measures 9.6 cm x 8.8 cm. Small cysts are seen in the left kidney. Normal left kidney. There is a small hiatal hernia. Normal small intestine. There are multiple colonic diverticula consistent with diverticulosis. The appendix is visualized and appears normal. There is scattered atherosclerotic calcification of the abdominal aorta, without a demonstrated aneurysm. Normal inferior vena cava. Normal retroperitoneum. Normal urinary bladder. Normal abdominal wall. There are diffuse degenerative changes of the visualized lumbar spine. CT/Abdomen/Pelvis WITH Contrast IMPRESSION: Fatty infiltration of the liver. Multiple small gallstones. Bilateral renal cysts more prominent in the right kidney. Sigmoid diverticulosis. Electronically Signed: Gil Haney MD at 14:48 EDT ,
[2024-04-22 08:18] LABS: CREATININE FINGERSTICK 1.3 mg/dL (0.70-1.30)
== END | disposition home or self-care (01) ==
LOC: CT 07:50
PROVIDERS: PCP Family Medicine; Referring Provider Family Medicine; Visit Provider Family Medicine
DX: Z01.812 Encounter for preprocedural laboratory examination (principal); R10.32 Left lower quadrant pain
CPT/HCPCS: 74177; Q9967

== ENCOUNTER → 2024-10-23 | Outpatient (CLI) | payer MEDICARE, SELFPAY ==
--- NOTE | 2024-10-23 09:25 | RAD_ITS ---
EXAM: XR Left Shoulder Complete, 2 or More Views CLINICAL INDICATION: TECHNIQUE: Two or more views of the left shoulder. COMPARISON: No relevant prior studies available. FINDINGS: BONES/JOINTS: Unremarkable. No acute fracture. No dislocation. SOFT TISSUES: Unremarkable. RAD/Shoulder min 2 Views IMPRESSION: No acute fracture. Reading Location[facility]
== END | disposition home or self-care (01) ==
LOC: MTRAD 09:15
PROVIDERS: PCP Family Medicine; Referring Provider Family Medicine; Visit Provider Family Medicine
DX: S43.005A Unspecified dislocation of left shoulder joint, initial encounter (principal); X58.XXXA Exposure to other specified factors, initial encounter
CPT/HCPCS: 73030

== ENCOUNTER 2024-10-28 00:48 | Inpatient (IN) | payer MEDICARE, SELFPAY ==
[2024-10-28] VITALS (24 sets, daily range): BP systolic 94–163; BP diastolic 60–86; PULSE 78–128; RESP 18–40; TEMP 36.5–37.3; O2SAT 70–98; BMI 30.3; BMI 30.6
--- NOTE | 2024-10-28 01:25 | EKG12_ITS ---
Test Reason : SOB Blood Pressure : */* mmHG Vent. Rate : 125 BPM Atrial Rate : * BPM P-R Int : * ms QRS Dur : 78 ms QT Int : 414 ms P-R-T Axes : * 20 46 degrees QTcB Int : 597 ms Critical Test Result: Long QTc Sinus tachycardia Low voltage QRS Nonspecific ST and T wave abnormality Abnormal ECG Confirmed by Riley Wong ([id number]), research editor ADDY BELTRE ([id number]) on 10/28/2024 11:29:16 AM Referred By: GRACIELA Confirmed By: Riley Wong
--- NOTE | 2024-10-28 01:25 | RAD_ITS ---
PROCEDURE: CHEST 1 VIEW (PORTABLE) REASON FOR EXAM: Shortness of breath, cough. TECHNIQUE: Frontal view of the chest. COMPARISON: None. FINDINGS: Cardiac size and pulmonary vasculature are within normal limits. There is a left infrahilar airspace opacity as well as a mild right infrahilar airspace opacity. There is mild blunting of the left costophrenic angle suggestive of a small left pleural effusion. No pneumothorax is identified. RAD/Chest 1 View (Portable) IMPRESSION: 1. Bilateral lower lobe airspace opacities, [id number], likely rel ating to pneumonia. 2. Small left pleural effusion. Reading Location: [facility]
[2024-10-28] MEDS: Albuterol 2.5 MG/3 ML VIAL.NEB. INHALATION (01:37)
[2024-10-28 01:39] LABS: Absolute Neutrophil Count 9.5 X10^3/uL (2.0-7.7); Basophil# 0.03 X10^3/uL; Basophil% 0.3 % (0-1); Eosinophil# 0.02 X10^3/uL; Eosinophils% 0.2 % (0-5); Hematocrit 44.5 % (40-54); Hemoglobin 14.6 g/dL (13.0-16.5); Lymphocyte % 13.8 % (19-41); Mean Corp Hgb Conc 32.8 g/dL (32-36); Mean Corpuscular Hgb 30.4 pg (27.0-32.0); Mean Corpuscular Volume 92.5 fL (80-94); Mean Platelet Vol. 11.6 fl (6.2-12.0); Monocyte# 0.37 X10^3/uL; Monocyte% 3.2 % (0-10); NRBC Flagged by Analyzer 0 % (0-5); Neutrophil % 82.1 % (47-70); POSITIVE MORPHOLOGY YES; Platelet Count 317 K/mm3 (150-450); RBC Distribution Width CV 13.9 % (11.6-14.6); RBC Distribution Width SD 47.5 fl (35.1-43.9); Red Blood Count 4.81 M/mm3 (4.6-6.2); White Blood Count 11.6 K/mm3 (4.4-11.0)
[2024-10-28 01:43] LABS: Differential Indicated SCAN CRITERIA MET
[2024-10-28 01:48] LABS: Prothrombin Time (Protime)PT. 13.8 SECONDS (11.7-14.9)
[2024-10-28 01:49] LABS: Partial Thromboplast Time 23.1 Seconds (24.1-36.2)
[2024-10-28 01:58] LABS: ALB/GLOB Ratio 0.8 RATIO (0.9-2.4); AST(SGOT) 30 U/L (15-37); Alanine Aminotransfer ALT/SGPT 41 U/L (16-61); Albumin, Serum 3.4 g/dL (3.2-5.0); Alkaline Phosphatase 44 U/L (45-117); Anion Gap 10 (5-15); BUN 27 mg/dL (7-18); BUN/Creat Ratio 14.1 RATIO (10-20); Chloride 108 mmol/L (98-107); Creatinine, Serum 1.91 mg/dL (0.70-1.30); EST Glomerular Filtration Rate 37 mL/min (>60); Est Glom Filt Rate - Afr Amer 45 mL/min (>60); Estimated Creatinine Clearance 38.75 ml/min; Globulin 4.5 g/dL (2.2-4.2); Glucose 178 mg/dL (74-106); Protein, Total 7.9 g/dL (6.4-8.2); Sodium Level 141 mmol/L (136-145); Troponin-I HS 6 pg/mL (3.0-78.0)
[2024-10-28 02:16] LABS: Atypical Lymphocyte 2+ %
[2024-10-28 02:24] LABS: Lactic Acid 2.5 mmol/L (0.4-1.9)
--- NOTE | 2024-10-28 02:31 | EDS_ITS ---
HPI History of Present Illness Chief Complaint: Shortness of Breath Informant: patient and spouse/S.O. Narrative Narrative: 69-year-old male states he presumably has had influenza starting about 4 days ago, his was ill with the same thing just before him, neither one of them has had any testing but they were around their grandkids who were diagnosed with influenza. He was having some subjective fevers and chills, cough, body aches, headaches, malaise until earlier today when he started feeling short of breath and it has become worse. He denies orthopnea, leg edema, chest pain. No history of lung or heart problems that he knows of. [facility] Medical History Screening for colon cancer Ventral hernia with bowel obstruction Osteoarthritis Otitis media, right Hyperkeratosis History of pneumothorax Hypertension Incarcerated ventral hernia Home Medications ?Medication ?Instructions ?Recorded ?Last Taken ?Type lisinopril 40 mg tablet 40 mg PO DAILY 04/09/17 05/0 05/04 05:00 History aspirin 81 mg tablet,delayed 81 mg PO DAILY 05/14/22 U nknown History release fenofibrate nanocrystallized 145 145 mg PO DAILY 05/14 Unknown History mg tablet multivitamin 1 tab PO DAILY 05/14/22 Unkn own History atorvastatin 10 mg tablet 10 mg PO QDAY 07/30/24 Unkno wn History famotidine 40 mg tablet 40 mg PO QDAY 07/30/24 Unkno wn History metformin 500 mg tablet 500 mg PO QDAY 07/30/24 Unkn own History metformin 500 mg tablet,extended 500 mg PO DAILY 10/28 Unknown History release 24 hr Allergy/AdvReac Type Severity Reaction Status Date / Time No Known Allergies Allergy Verified 10/28/24 00:49 Surgical History H/O hernia repair Social History Smoking Status: Former smoker alcohol intake: never ROS ROS ED Constitutional Constitutional ED: Reports body ache(s), chills, fatigue, fever(s), headache(s), malaise and subjective Eyes Eyes: Denies change in vision or diplopia ENT ENT ED: Denies rhinorrhea or sore throat Cardiovascular Cardiovascular: Denies chest pain or palpitations Respiratory/Chest Respiratory/Chest: Reports cough, dyspnea and dyspnea on exertion Gastrointestinal Gastrointestinal: Reports diarrhea; Denies abdominal pain, nausea or vomiting Genitourinary Genitourinary ED: Denies dysuria or hematuria Musculoskeletal Musculoskeletal: Denies back pain or neck pain Integumentary Denies abscess or rash Neurologic Neurologic: Reports headache(s); Denies paresthesias or weakness Psychiatric Psychiatric: Denies anxiety or suicidal thoughts EXAM Physical Exam Const Vital Signs: 10/28/24 00:48 10/28/24 00:52 10/28/24 00:52 Temperature 98.7 F 98.7 F Temperature Source Oral Oral Pulse Rate 124 H 120 H 120 H Respiratory Rate 30 H 23 H 32 H Respiratory Effort Respiratory Depth Respiratory Pattern Blood Pressure 163/72 H 163/72 H Blood Pressure Mean 102 102 Pulse Ox 70 88 70 Oxygen Delivery Method Room Air Nasal Cannula Room Air Oxygen Flow Rate (L/min) 6 Fraction of Inspired Oxygen (FIO2) 10/28/24 00:56 10/28/24 00:56 10/28/24 01:45 Temperature Temperature Source Pulse Rate 128 H Respiratory Rate 40 H Respiratory Effort Short of Breath Respiratory Depth Deep Respiratory Pattern Tachypnea Blood Pressure Blood Pressure Mean Pulse Ox 92 Oxygen Delivery Method Non-Rebreather Non-Rebreather Oxygen Flow Rate (L/min) 15 15 Fraction of Inspired Oxygen (FIO2) 10/28/24 01:46 10/28/24 01:50 10/28/24 01:50 Temperature Temperature Source Pulse Rate 121 H 121 H Respiratory Rate 22 H 24 H 24 H Respiratory Effort Respiratory Depth Respiratory Pattern Tachypnea Tachypnea Blood Pressure Blood Pressure Mean Pulse Ox 96 95 Oxygen Delivery Method Airvo Oxygen Flow Rate (L/min) 60 Fraction of Inspired Oxygen (FIO2) 80 70 10/28/24 01:52 10/28/24 02:00 10/28/24 02:57 Temperature 98.5 F 98.7 F 98.8 F Temperature Source Oral Oral Pulse Rate 120 H 121 H 112 H Respiratory Rate 25 H 21 H 29 H Respiratory Effort Respiratory Depth Respiratory Pattern Blood Pressure 99/60 110/61 96/64 Blood Pressure Mean 73 77 74 Pulse Ox 95 95 96 Oxygen Delivery Method Airvo Airvo Oxygen Flow Rate (L/min) 40 Fraction of Inspired Oxygen (FIO2) 10/28/24 03:00 Temperature 98.8 F Temperature Source Oral Pulse Rate 122 H Respiratory Rate 27 H Respiratory Effort Respiratory Depth Respiratory Pattern Blood Pressure 94/71 Blood Pressure Mean 78 Pulse Ox 92 Oxygen Delivery Method Airvo Oxygen Flow Rate (L/min) Fraction of Inspired Oxygen (FIO2) Positive well nourished and well developed Constitutional Narrative: Well-appearing but tachypneic General Appearance ED: well developed HEENT Reports moist mucous membranes normocephalic and atraumatic Eyes PERRL and EOMs intact bilaterally Neck full ROM, no lymphadenopathy, supple, no meningeal signs and no JVD Resp Resp Narrative: Tachypnea with mild respiratory distress, bibasilar Rales. Breath sounds are equal bilaterally. Cardio regular rate and regular rhythm Rate: tachycardic GI non-tender and non-distended Auscultation: normoactive bowel sounds Palpation: soft Back/Spine no CVA tenderness General Back: other FROM Extremity normal to inspection and no calf tenderness General Extremety ED: Negative for edema, pulses abnormal or tenderness General Extremity: Negative for edema or pulses abnormal Neuro oriented x3, CN's II-XII intact bilaterally and no sensory deficits noted Sensorium / Orientation: awake and alert Motor Exam: strength 5/5 throughout Psych mental status grossly normal Skin no rashes or lesions noted and no wounds Sepsis Attestation Sepsis Alert: Yes Sepsis Attestation: Agree w/Sepsis Date exam was performed: 10/28/24 Time exam was performed: 03:18 Possible Source of Sepsis: Pulmonary Sepsis Organ Dysfunction Criteria Present: SBP decrease of more than 40 mmHg and Lactic Acid > 2 mmol/L Fluid Resuscitation Fluid resuscitation indicated?: Yes Fluid Resuscitation ordered: Lesser volume fluid bolus ordered Amount of fluid ordered: 2,000 Reason for lesser fluid bolus:: BP Responded to a lesser volume Sepsis Note Date exam was performed: 10/28/24 Time exam was performed: 04:00 Sepsis Attestation: Sepsis re-evaluation was performed Response to fluids: Fluid responsive hypotension MDM MDM MDM Narrative Medical decision making narrative: Initially, patient is tachycardic but is not feeling palpitations or racing heartbeat, so likely related to pulmonary edema versus infection, and blood pressure elevated 163/72, so considering CHF before giving the patient any fluids which could make him worse in that scenario. So while working him up, gave him an albuterol aerosol, and respiratory had him on a nonrebreather because his oxygen saturations were 70% on room air, and we decided to try high flow nasal cannula. This combination did help his breathing, no longer in respiratory distress respirations 21 on reevaluation. He is able to converse better. 1 view chest x-ray on my interpretation appears to show left greater than right basilar pneumonia rather than pulmonary edema, radiology in agreement. He has a leukocytosis, interestingly with atypical lymphocytes although his COVID/influenza/RSV swab is negative, his lactate is a little elevated, he has some mild DEL compared with his old renal measurements, and his troponin and BNP within normal limits. He is given a liter of fluid in addition to Zosyn, I am holding off on macrolides because on his EKG it appears that he may have a prolonged QT interval. Discussed with hospitalist for admission given his hypoxemia and respiratory failure requiring high flow nasal cannula. See PORT score below: PSI/PORT Score: Pneumonia Severity Index for CAP from [email or web address] on 10/28/2024 All calculations should be rechecked by clinician prior to use RESULT SUMMARY: 111 points Risk Class IV, 8.2-9.3% mortality. Hospitalization recommended based on risk. INPUTS: Age ?> 69 years Sex ?> 0 = Male [facility] resident ?> 0 = No Neoplastic disease ?> 0 = No Liver disease history ?> 0 = No CHF history ?> 0 = No Cerebrovascular disease history ?> 0 = No Renal disease history ?> 0 = No Altered mental status ?> 0 = No Respiratory rate >=0 breaths/min ?> 20 = Yes Systolic blood pressure <90 mmHg ?> 0 = No Temperature <35?C (95?F) or >39.9?C (103.8?F) ?> 0 = No Pulse >=25 beats/min ?> 10 = Yes pH <7.35 ?> 0 = No BUN >=0 mg/dL or >=1 mmol/L ?> 0 = No Sodium <130 mmol/L ?> 0 = No Glucose >=50 mg/dL or >=4 mmol/L ?> 0 = No Hematocrit <30% ?> 0 = No Partial pressure of oxygen <60 mmHg or <8 kPa ?> 10 = Yes Pleural effusion on x-ray ?> 0 = No As patient was being observed in the ED waiting for admission he started to drop his blood pressure, now 94/71 so a second liter of fluid ordered, his MAP is still good and not in septic shock but meeting criteria for sepsis. Will admit to ICU. History & Record Review Discussion w/independent historian: Patient and Significant other Lab Data Attestation: I reviewed the patient's lab results. Labs: Laboratory Results - last 24 hr 10/28/24 10/28/24 00:58 01:41 WBC 11.6 H RBC 4.81 Hgb 14.6 Hct 44.5 MCV 92.5 MCH 30.4 MCHC 32.8 RDW Std Deviation 47.5 H RDW Coeff of Daisha 13.9 Plt Count 317 MPV 11.6 Immature Gran % (Auto) 0.400 Neut % (Auto) 82.1 H Lymph % (Auto) 13.8 L [place] % (Auto) 3.2 Eos % (Auto) 0.2 Baso % (Auto) 0.3 Absolute Neuts (auto) 9.5 H Absolute Lymphs (auto) 1.60 Nucleated RBC % 0 Atypical Lymphocytes 2+ PT 13.8 INR 1.0 APTT 23.1 L Sodium 141 Potassium 4.0 Chloride 108 H Carbon Dioxide 23.0 Anion Gap 10 BUN 27 H Creatinine 1.91 H Estim Creat Clear Calc 38.75 Est GFR (MDRD) Af Amer 45 L Est GFR (MDRD) Non-Af 37 L BUN/Creatinine Ratio 14.1 Glucose 178 H Lactic Acid 2.5 H* Calcium 9.0 Total Bilirubin 0.50 AST 30 ALT 41 Alkaline Phosphatase 44 L Troponin I High Sens 6 B-Natriuretic Peptide 12.6 Total Protein 7.9 Albumin 3.4 Globulin 4.5 H Albumin/Globulin Ratio 0.8 L TSH 2.420 Radiography Diagnostic Testing: Clinical Impression(s) from Imaging Studies Chest X-Ray 10/28/24 01:25 IMPRESSION: 1. Bilateral lower lobe airspace opacities, [id number], likely relating to pneumonia. 2. Small left pleural effusion. Reading Location: [facility] Rhythm Strip Rhythm Strip: Sinus Tach Rate: 125 Ectopy: None EKG Initial EKG: Attestation: I personally reviewed and interpreted this EKG as follows: Interpretation: No Acute Injury Pattern, Sinus Tachycardia and Non- Specific ST Changes (no acute [place]) Comments: nml axis, narrow QRS, poss long QTc Management Discussion w/another healthcare provider: Hospitalist Critical Care Time Critical Care Time: Yes Critical care time (excluding procedures): 30-74 minutes (33 min), Including time spent:, Discussing w/Patient &/or Family/Entry Clerk, Discussing w/Consultants, Arranging Admission or Transfer and Performing Direct Patient Care at Bedside Discharge Plan Dx/Rx/DC Orders Clinical Impression: Sepsis, Acute hypoxemic respiratory failure, Bilateral pneumonia, Renal insufficiency Disposition Disposition: Acute Care Hospital [facility] Discharge Date/Time: 10/28/24 04:14
[2024-10-28 02:35] LABS: BNP,B-Type NATRIURETIC PEPTIDE 12.6 pg/mL (0-100)
[2024-10-28] MEDS: Piperacil/Tazobactam 4.5 GM in 0.9% Normal Saline (100mL MB+) 100 ML IV (02:40)
[2024-10-28] MEDS: 0.9% Normal Saline (1000mL) 1,000 ML 999 ML IV ×3 (02:40→06:48)
--- NOTE | 2024-10-28 03:16 | PCM.HP.STD ---
[facility] - General General Date of Admission: 10/28/24 Date of Service: 10/28/24 Chief Complaint: SOB. HPI Narrative KENNETH VÁZQUEZ, is a 69 M with a past medical history of essential hypertension; on lisinopril, hyperlipidemia; on atorvastatin, hypertriglyceridemia; on fenofibrate, former tobacco abuse, obesity; with a BMI of 30.3 this admission, DM-2; of unknown control on metformin 500 mg daily, GERD; on famotidine 40 mg daily, history of pneumothorax, history of incarcerated ventral hernia with bowel obstruction; s/p repair (2017), history of varicose veins of lower extremities and OA; with DJD of the Left hip who presents to [facility] ER complaining of shortness of breath. Mr. Vázquez reports that his symptoms began ~4 days ago with a viral upper respiratory illness after his had been sick with a similar viral syndrome after being exposed to the grandchildren who were diagnosed with influenza A. He admits to subjective fever, chills, cough, body aches, headache and malaise with dyspnea on exertion that progressed to shortness of breath at rest so he decided to come in for further evaluation and treatment. He also admits to nonbloody diarrhea but he denies abdominal pain, nausea, vomiting, dysuria, hematuria, back pain, neck pain, paresthesias, focal neurologic deficits or rash. In the ER he was noted to have Leukocytosis of 11.6 K with Lactic Acidosis of 2.5 mmol/L present on admission with persistent tachycardia of ~120 bpm and tachypnea of 27 breaths/min along with blood pressure dropping from 163/72 mmHg on admission to 94/71 mmHg in spite of 2L sepsis protocol fluid bolus plus empiric IV piperacillin/tazobactam along with corresponding chest x-ray evidence of bilateral lower lobe airspace opacities, Left greater than Right, likely relating to Pneumonia with a small Left pleural effusion consistent with suspected Sepsis after recent viral upper respiratory infection with suspected progression to bacterial superinfection causing pneumonia complicated by clinical evidence of Acute Hypoxic Respiratory Failure with patient having to be started on Airvo compounded by nonbloody diarrhea and suspected DEL; with elevated serum creatinine of 1.91 mg/dL present on admission (up from his baseline serum creatinine of 1.74 mg/dL during his last admission) and he was then admitted to the ICU for treatment under the sepsis protocol for a stay that is expected to extend beyond 2 midnights. [facility] Medical History Screening for colon cancer Ventral hernia with bowel obstruction Osteoarthritis Otitis media, right Hyperkeratosis History of pneumothorax Hypertension Incarcerated ventral hernia Home Medications ?Medication ?Instructions ?Recorded ?Last Taken ?Type lisinopril 40 mg tablet 40 mg PO DAILY 04/09/17 01/21/19 05:00 History aspirin 81 mg tablet,delayed 81 mg PO DAILY 05/14/22 Unknown History release fenofibrate nanocrystallized 145 145 mg PO DAILY 05/14/22 Unknown History mg tablet multivitamin 1 tab PO DAILY 05/14/22 Unknown History atorvastatin 10 mg tablet 10 mg PO QDAY 07/30/24 Unknown History famotidine 40 mg tablet 40 mg PO QDAY 07/30/24 Unknown History metformin 500 mg tablet 500 mg PO QDAY 07/30/24 Unknown History metformin 500 mg tablet,extended 500 mg PO DAILY 10/28/24 Unknown History release 24 hr Allergy/AdvReac Type Severity Reaction Status Date / Time No Known Allergies Allergy Verified 10/28/24 00:49 Surgical History H/O hernia repair Social History Smoking Status: Former smoker alcohol intake: never ROS ROS Narrative Review of Systems: Constitutional: Patient admits to fever, chills, malaise and generalized bodyaches. Eyes: Patient denies changes in vision or discharge from eyes. ENT: Patient denies runny nose, sore throat or ear pain. Resp: Patient admits to dyspnea on exertion that progressed to shortness of breath at rest with increasingly frequent nonproductive cough as per HPI. CV: Patient denies chest pain, palpitations, heart racing or lower extremity edema. GI: Patient admits to nonbloody diarrhea but he denies abdominal pain, nausea or vomiting. : Patient denies dysuria or hematuria. MSK: Patient admits to myalgias. Skin: Patient denies rash, abscess, wounds or jaundice. Psych: Patient denies symptoms of uncontrolled depression or anxiety. Neuro: Patient admits to tension-type headache but he denies paresthesias or focal neurologic deficits. Allergy: Patient denies lip swelling, tongue swelling or urticaria. Hematology: Patient denies easy bleeding or easy bruisability. Endocrinology: Patient denies polyuria, polydipsia or polyphagia. 14 point review of systems otherwise negative except for positives noted above in HPI. Vital Signs Vital Signs Vital Signs: 10/28/24 00:48 10/28/24 00:52 10/28/24 00:52 Temperature 98.7 F 98.7 F Temperature Source Oral Oral Pulse Rate 124 H 120 H 120 H Respiratory Rate 30 H 23 H 32 H Respiratory Effort Respiratory Depth Respiratory Pattern Blood Pressure 163/72 H 163/72 H Blood Pressure Mean 102 102 Pulse Ox 70 88 70 Oxygen Delivery Method Room Air Nasal Cannula Room Air Oxygen Flow Rate (L/min) 6 Fraction of Inspired Oxygen (FIO2) 10/28/24 00:56 10/28/24 00:56 10/28/24 01:45 Temperature Temperature Source Pulse Rate 128 H Respiratory Rate 40 H Respiratory Effort Short of Breath Respiratory Depth Deep Respiratory Pattern Tachypnea Blood Pressure Blood Pressure Mean Pulse Ox 92 Oxygen Delivery Method Non-Rebreather Non-Rebreather Oxygen Flow Rate (L/min) 15 15 Fraction of Inspired Oxygen (FIO2) 10/28/24 01:46 10/28/24 01:50 10/28/24 01:50 Temperature Temperature Source Pulse Rate 121 H 121 H Respiratory Rate 22 H 24 H 24 H Respiratory Effort Respiratory Depth Respiratory Pattern Tachypnea Tachypnea Blood Pressure Blood Pressure Mean Pulse Ox 96 95 Oxygen Delivery Method Airvo Oxygen Flow Rate (L/min) 60 Fraction of Inspired Oxygen (FIO2) 80 70 10/28/24 01:52 10/28/24 02:00 10/28/24 02:57 Temperature 98.5 F 98.7 F 98.8 F Temperature Source Oral Oral Pulse Rate 120 H 121 H 112 H Respiratory Rate 25 H 21 H 29 H Respiratory Effort Respiratory Depth Respiratory Pattern Blood Pressure 99/60 110/61 96/64 Blood Pressure Mean 73 77 74 Pulse Ox 95 95 96 Oxygen Delivery Method Airvo Airvo Oxygen Flow Rate (L/min) 40 Fraction of Inspired Oxygen (FIO2) 10/28/24 03:00 Temperature 98.8 F Temperature Source Oral Pulse Rate 122 H Respiratory Rate 27 H Respiratory Effort Respiratory Depth Respiratory Pattern Blood Pressure 94/71 Blood Pressure Mean 78 Pulse Ox 92 Oxygen Delivery Method Airvo Oxygen Flow Rate (L/min) Fraction of Inspired Oxygen (FIO2) Weight Weight: 199 lb 8.293 oz Body Mass Index (BMI) 30.3 Physical Exam Const alert and oriented x3 Constitutional Narrative: Moderately labored respiration on Airvo. General Appearance: cooperative HEENT normocephalic, head/scalp atraumatic, hearing grossly normal bilaterally and moist oral mucous membranes Eyes PERRL, EOMs intact bilaterally and conjunctivae normal Neck no lymphadenopathy and supple Resp Resp Narrative: Tachypnea noted with mild respiratory distress and bibasilar rales with diminished breath sounds over the Left lower lobe. Cardio regular rate and regular rhythm GI normal to inspection, nondistended, normoactive bowel sounds, soft to palpation, non-tender and non-distended GI Narrative: Obese. Extremity normal to inspection, full ROM and no clubbing, cyanosis or edema Skin Skin Narrative: Patient has evidence of rash, abscess, wounds or jaundice. Neuro oriented x3, CN's II-XII intact bilaterally, moves all extremities and no focal motor deficits Sensorium / Orientation: awake, alert, oriented to person, oriented to place and oriented to time Speech: speech normal Psych affect normal Results Medical Records Data Attestation: I reviewed the patient's medical records Lab / Micro Data Attestation: I reviewed the patient's lab results. 10/28/24 00:58 10/28/24 00:58 Labs: Laboratory Results - last 24 hr 10/28/24 00:58: WBC 11.6 H, RBC 4.81, Hgb 14.6, Hct 44.5, MCV 92.5, MCH 30.4, MCHC 32.8, RDW Std Deviation 47.5 H, RDW Coeff of Daisha 13.9, Plt Count 317, MPV 11.6, Immature Gran % (Auto) 0.400, Neut % (Auto) 82.1 H, Lymph % (Auto) 13.8 L, [place] % (Auto) 3.2, Eos % (Auto) 0.2, Baso % (Auto) 0.3, Absolute Neuts (auto) 9.5 H, Absolute Lymphs (auto) 1.60, Nucleated RBC % 0, Atypical Lymphocytes 2+, PT 13.8, INR 1.0, APTT 23.1 L, Sodium 141, Potassium 4.0, Chloride 108 H, Carbon Dioxide 23.0, Anion Gap 10, BUN 27 H, Creatinine 1.91 H, Estim Creat Clear Calc 38.75, Est GFR (MDRD) Af Amer 45 L, Est GFR (MDRD) Non-Af 37 L, BUN/Creatinine Ratio 14.1, Glucose 178 H, Calcium 9.0, Total Bilirubin 0.50, AST 30, ALT 41, Alkaline Phosphatase 44 L, Troponin I High Sens 6, Total Protein 7.9, Albumin 3.4, Globulin 4.5 H, Albumin/Globulin Ratio 0.8 L 10/28/24 01:41: Lactic Acid 2.5 H*, B-Natriuretic Peptide 12.6 Micro: Microbiology 10/28/24 01:42 Mucosa - Nose SARS-CoV-2, Influenza & RSV (PCR) - Final Rhythm Strip Rhythm Strip: Sinus Tach Rate: 125 Ectopy: None Imaging Radiology Impression Chest X-Ray 10/28/24 01:25 IMPRESSION: 1. Bilateral lower lobe airspace opacities, [id number], likely relating to pneumonia. 2. Small left pleural effusion. Reading Location: [facility] Imaging Services [address] [place] [id number] Chest, Abd, Pelvis WO Cont MR#: [id number] Acct: [id number] Name: KENNETH VÁZQUEZ Rep #: [id number] : 1955 M 69 From: Yordan Arora DO PCP: Dr. Lianne Pascal MD Status: ADM IN Study: CT Chest, Abd, Pelvis WO Cont Date of Exam: 10/28/24 Exam# [id number] Ordering Dr: Scot Simmons DO PROCEDURE: CT CHEST, ABD, PELVIS WO CONT REASON FOR EXAM: Shortness of breath. TECHNIQUE: Chest, abdomen and pelvis CT without intravenous contrast. Coronal and sagittal 2D reformatted images were provided for better evaluation. COMPARISON: Chest x-ray from 10/28/2024. CT abdomen/pelvis from 04/22/2024. FINDINGS: CT CHEST: Cardiac size is within normal limits. Thoracic aorta demonstrates a normal caliber with mild atherosclerotic calcifications. There is mediastinal lymphadenopathy. Evaluation for hilar lymphadenopathy is limited without intravenous contrast. No pericardial or pleural effusion is present. There is a large airspace consolidation in the left lower lobe as well as an airspace consolidation in the right lower lobe. Biapical scarring is present. No pneumothorax is present. Additionally, there are reticulonodular ground-glass opacities in the right lower lobe and mild interstitial opacities in the right middle lobe and left upper lobe likely on an infectious inflammatory basis. Central airway is patent. Evaluation of the osseous structures demonstrates degenerative changes. CT ABDOMEN / PELVIS: There is hepatic steatosis. There is a left hepatic lobe cyst anteriorly measuring 24 mm. There is an additional smaller cyst in the right hepatic lobe anteriorly measuring 10 mm. There is cholelithiasis with no gallbladder wall thickening. Spleen, pancreas, biliary system, and adrenal glands are unremarkable within the limits of the noncontrast exam. Abdominal aorta demonstrates a normal caliber with extensive atherosclerotic calcifications. No renal or ureteral stones are present bilaterally. No hydronephrosis or hydroureter is present bilaterally. Bilateral renal cysts are present with the largest in the right kidney measuring 10 cm. There is a small fat containing umbilical hernia. There are small fat containing bilateral inguinal hernias. Urinary bladder is underdistended. Colonic diverticulosis is identified without diverticulitis. Appendix is unremarkable. Small bowel demonstrates a normal caliber. No free air or free fluid is identified. Degenerative changes are identified. There is levoscoliosis of the lumbar spine. There is partial sacralization of L5. CT/CT Chest, Abd, Pelvis WO Cont IMPRESSION: 1. Airspace consolidations in the bilateral lower lobes which is large in the left lower lobe relating to pneumonia as well as interstitial and reticulonodular opacities in the bilateral lungs likely on an infectious inflammatory basis. 2. Mediastinal lymphadenopathy likely reactive to #1. 3. Hepatic steatosis. 4. Colonic diverticulosis without diverticulitis. 5. Cholelithiasis with no CT evidence of acute cholecystitis. 6. Additional findings as above. One or more dose reduction techniques were used (e.g., Automated exposure control, adjustment of the mA and/or kV according to patient size, use of iterative reconstruction technique). Reading Location: [facility] Assessment & Plan Assessment/Plan (1) Bilateral pneumonia: QUALIFIERS: Lung location: unspecified part of lung Pneumonia type: due to unspecified organism Qualified Code(s): J18.9 - Pneumonia, unspecified organism (2) Sepsis: QUALIFIERS: Acute respiratory failure type: with hypoxia Sepsis acute organ dysfunction status: with acute organ dysfunction Sepsis type: sepsis due to unspecified organism Severe sepsis acute organ dysfunction type: acute respiratory failure Severe sepsis shock status: with septic shock Qualified Code(s): A41.9 - Sepsis, unspecified organism; R65.21 - Severe sepsis with septic shock; J96.01 - Acute respiratory failure with hypoxia (3) Acute hypoxemic respiratory failure: (4) Viral respiratory illness: (5) Lactic acidosis: (6) Leukocytosis: QUALIFIERS: Leukocytosis type: unspecified Qualified Code(s): D72.829 - Elevated white blood cell count, unspecified (7) Acute diarrhea: (8) Obesity (BMI 30.0-34.9): PLAN: Plan 1. Leukocytosis of 11.6 K with Lactic Acidosis of 2.5 mmol/L present on admission with persistent tachycardia of ~120 bpm and tachypnea of 27 breaths/min along with blood pressure dropping from 163/72 mmHg on admission to 94/71 mmHg in spite of 2L sepsis protocol fluid bolus along with corresponding chest x-ray evidence of bilateral lower lobe airspace opacities, Left greater than Right, likely relating to Pneumonia with a small left pleural effusion consistent with suspected Sepsis after recent viral upper respiratory infection with suspected progression to bacterial superinfection causing pneumonia - Admit to ICU for treatment under the Sepsis protocol. Continue empiric IV piperacillin-tazobactam begun in the ER and add IV vancomycin with worsening hypotension in spite of initial treatment with Zosyn and await culture and sensitivity data. Check urinary antigens to Streptococcus pneumonia and Legionella. Give Mucinex 1200 mg p.o. twice daily. Start probiotic to replace normal natalie and give supplemental vitamin D3, vitamin C and zinc to help boost immunity and hopefully speed recovery. Give acetaminophen as needed for [id number] (level 1-5/10) pain or fever. Give morphine IV as needed for severe (level 6-10/10) pain. Check CT scan of chest without contrast to further assess severity of pneumonia. Finally, we will consult pulmonary critical care physician to see this patient on rounds in the a.m. for further recommendations without appreciated in advance. 2. Acute Hypoxic Respiratory Failure with patient having to be started on Airvo due to #1 - Wean Airvo as tolerated. 3. Suspected DEL; with elevated serum creatinine of 1.91 mg/dL present on admission (up from his baseline serum creatinine of 1.74 mg/dL during his last admission) complicating #1 & #2 - 4. Nonbloody Diarrhea adding to the medical complexity of #1 - #3 - Check stool studies and place on enteric precautions until infectious etiology definitively ruled out. 5. Obesity; with a BMI of 30.3 this admission adding to the burden of disease outlined from #1 - #4 - Weight loss will be recommended. Check TSH. This complicates his case and may hamper recovery. 6. DM-2; of unknown control on metformin 500 mg daily - Keep NPO for now. FSBS q. 6 hours plus lowest-intensity SSI. Check HgbA1c to objectively assess quality of diabetic control. 7. Essential Hypertension; on lisinopril - Hold scheduled antihypertensives until infection outlined in #1 is neutralized. 8. Hyperlipidemia; on atorvastatin - Resume statin and check lipid profile. 9. Hypertriglyceridemia; on fenofibrate - Maintain fenofibrate as previous. 10. Former tobacco abuse - Noted with CT scan of chest without contrast pending to evaluate for possible lesion not readily apparent on CXR. 11. GERD; on famotidine 40 mg daily - Continue famotidine as previous. 12. History of pneumothorax - Noted. 13. History of incarcerated ventral hernia with bowel obstruction; s/p repair (2017) - Noted. 14. History of varicose veins of lower extremities - Stable. 16. OA; with DJD of the Left hip - Give acetaminophen prn. 17. DVT prophylaxis - Heparin 5,000U sq TID plus SCD's. Total time: Approximately (but not less than) 75 minutes. Sepsis Attestation Sepsis Alert: Yes Sepsis Attestation: Agree w/Sepsis Date exam was performed: 10/28/24 Time exam was performed: 03:45 Possible Source of Sepsis: Pulmonary and GI tract/intra-abdominal Sepsis Organ Dysfunction Criteria Present: SBP decrease of more than 40 mmHg, Acute Respiratory Failure (New need for BiPAP/CPAP or MV) and Lactic Acid > 2 mmol/L Supportive Findings: In the ER he was noted to have Leukocytosis of 11.6 K with Lactic Acidosis of 2.5 mmol/L present on admission with persistent tachycardia of ~120 bpm and tachypnea of 27 breaths/min along with blood pressure dropping from 163/72 mmHg on admission to 94/71 and spite of 2L sepsis protocol fluid bolus along with corresponding chest x-ray evidence of bilateral lower lobe airspace opacities, Left greater than Right, likely relating to Pneumonia with a small left pleural effusion consistent with suspected Sepsis after recent viral upper respiratory infection with suspected progression to bacterial superinfection causing pneumonia complicated by clinical evidence of Acute Hypoxic Respiratory Failure with patient having to be started on Airvo compounded by nonbloody diarrhea and suspected DEL; with elevated serum creatinine of 1.91 mg/dL present on admission (up from his baseline serum creatinine of 1.74 mg/dL during his last admission). Fluid Resuscitation Fluid resuscitation indicated?: Yes Fluid Resuscitation ordered: 30 ml/kg fluid bolus ordered Amount of fluid ordered: 3 Sepsis Note Date exam was performed: 10/28/24 Time exam was performed: 07:00 Sepsis Attestation: Sepsis re-evaluation was performed Response to fluids: Fluid responsive hypotension Charges/Coding Visit Charges Inpatient E&M: 39891 Init Hosp L3
--- NOTE | 2024-10-28 03:29 | CT_ITS ---
PROCEDURE: CT CHEST, ABD, PELVIS WO CONT REASON FOR EXAM: Shortness of breath. TECHNIQUE: Chest, abdomen and pelvis CT without intravenous contrast. Coronal and sagittal 2D reformatted images were provided for better evaluation. COMPARISON: Chest x-ray from 10/28/2024. CT abdomen/pelvis from 04/22/2024. FINDINGS: CT CHEST: Cardiac size is within normal limits. Thoracic aorta demonstrates a normal caliber with mild atherosclerotic calcifications. There is mediastinal lymphadenopathy. Evaluation for hilar lymphadenopathy is limited without intravenous contrast. No pericardial or pleural effusion is present. There is a large airspace consolidation in the left lower lobe as well as an airspace consolidation in the right lower lobe. Biapical scarring is present. No pneumothorax is present. Additionally, there are reticulonodular ground-glass opacities in the right lower lobe and mild interstitial opacities in the right middle lobe and left upper lobe likely on an infectious inflammatory basis. Central airway is patent. Evaluation of the osseous structures demonstrates degenerative changes. CT ABDOMEN / PELVIS: There is hepatic steatosis. There is a left hepatic lobe cyst anteriorly measuring 24 mm. There is an additional smaller cyst in the right hepatic lobe anteriorly measuring 10 mm. There is cholelithiasis with no gallbladder wall thickening. Spleen, pancreas, biliary system, and adrenal glands are unremarkable within the limits of the noncontrast exam. Abdominal aorta demonstrates a normal caliber with extensive atherosclerotic calcifications. No renal or ureteral stones are present bilaterally. No hydronephrosis or hydroureter is present bilaterally. Bilateral renal cysts are present with the largest in the right kidney measuring 10 cm. There is a small fat containing umbilical hernia. There are small fat containing bilateral inguinal hernias. Urinary bladder is underdistended. Colonic diverticulosis is identified without diverticulitis. Appendix is unremarkable. Small bowel demonstrates a normal caliber. No free air or free fluid is identified. Degenerative changes are identified. There is levoscoliosis of the lumbar spine. There is partial sacralization of L5. CT/CT Chest, Abd, Pelvis WO Cont IMPRESSION: 1. Airspace consolidations in the bilateral lower lobes which is large in the l eft lower lobe relating to pneumonia as well as interstitial and reticulonodular opacities in the bilateral lungs likely on an infectious inflammatory basis. 2. Mediastinal lymphadenopathy likely reactive to #1. 3. Hepatic steatosis. 4. Colonic diverticulosis without diverticulitis. 5. Cholelithiasis with no CT evidence of acute cholecystitis. 6. Additional findings as above. One or more dose reduction techniques were used (e.g., Automated exposure contr ol, adjustment of the mA and/or kV according to patient size, use of iterative reconstruction technique). Reading Location: [facility]
--- NOTE | 2024-10-28 03:33 | ED.RN ---
REPORT CALLED TO ICU NURSE VALENCIA. NO FURTHER QUESTIONS BY THE RECEIVING NURSE AT THIS TIME.
[2024-10-28 03:49] LABS: Allen Test Positive; Base Excess -4 mmol/L (-2 to +2); Bicarbonate 21.6 mmol/L (22-26); Blood Gas Specimen Type ART; Comment Airvo 60L 70%; Mode Not entered; O2 Delivery Device CPAP; PO2 69 mmHG (75-100); SITE R Radial; SO2 93 % (95-99); Total Carbon Dioxide 23 mmol/L; pCO2 36.4 mmHg (35-45); pH 7.38 (7.35-7.45)
[2024-10-28] MEDS: Vancomycin HCl 2,000 MG in 0.9% Normal Saline (500mL Bag) 500 ML 250 MG IV (04:35)
--- NOTE | 2024-10-28 05:48 | PCM.RX.CS ---
Consult Antibiotic Management Pharmacy has been consulted to manage selected antibiotic: Vancomycin Type of Intervention Type of Consult: New start Labs Labs: Sodium 141 mmol/L (136-145) 10/28/24 00:58 Potassium 4.0 mmol/L (3.5-5.1) 10/28/24 00:58 Chloride 108 mmol/L (98-107) H 10/28/24 00:58 Carbon Dioxide 23.0 mmol/L (21.0-32.0) 10/28/24 00:58 Anion Gap 10 (5-15) 10/28/24 00:58 BUN 27 mg/dL (7-18) H 10/28/24 00:58 Creatinine 1.91 mg/dL (0.70-1.30) H 10/28/24 00:58 Est GFR (MDRD) Af Amer 45 mL/min (>60) L 10/28/24 00:58 Est GFR (MDRD) Non-Af 37 mL/min (>60) L 10/28/24 00:58 BUN/Creatinine Ratio 14.1 RATIO (10-20) 10/28/24 00:58 Glucose 178 mg/dL (74-106) H 10/28/24 00:58 Microbiology Microbiology: Microbiology 10/28/24 05:15 Stool Stool Lactoferrin - Final 10/28/24 01:42 Mucosa - Nose SARS-CoV-2, Influenza & RSV (PCR) - Final Dosing Weight Weight used for dosin.4 kg Estimated Creatinine Clearance Estimated Creatinine Clearance: 38.75 Goal Trough Goal Trough: 15-20 mcg/mL Pharmacy Plan for Drug Dosing Pharmacy Plan for Drug Dosing: Pharmacy Service will continue to monitor and adjust dosing as required. LOADING DOSE 2GM GIVEN 10/28 @ 2142. START 1250MG Q24H AND DRAW TROUGH PRIOR TO 3RD DOSE Follow-Up Labs Follow-Up Labs: Trough: Vancomycin Date/Time Labs Ordered Labs to be done on [date and time ordered]: 10/30 @ 4767
[2024-10-28 05:52] LABS: Reflex Lactate? Y
[2024-10-28] MEDS: Heparin Injection (Vial) 5,000 UNIT/ML VIAL 5000 UNIT SC ×3 (06:08→21:45)
[2024-10-28] MEDS: MethylPREDNISolone 125 MG/2 ML Vial IV (06:08)
[2024-10-28 07:04] LABS: Lactic Acid 1.7 mmol/L (0.4-1.9)
--- NOTE | 2024-10-28 07:47 | EX.PCM.CONCC ---
Assessment & Plan Assessment/Plan (1) Sepsis: QUALIFIERS: Sepsis type: sepsis due to unspecified organism Sepsis acute organ dysfunction status: with acute organ dysfunction Severe sepsis acute organ dysfunction type: acute respiratory failure Acute respiratory failure type: with hypoxia Severe sepsis shock status: with septic shock Qualified Code(s): A41.9 - Sepsis, unspecified organism; R65.21 - Severe sepsis with septic shock; J96.01 - Acute respiratory failure with hypoxia (2) Bilateral pneumonia: QUALIFIERS: Pneumonia type: due to unspecified organism Lung location: unspecified part of lung Qualified Code(s): J18.9 - Pneumonia, unspecified organism (3) Acute hypoxemic respiratory failure: PLAN: Plan RECOMMENDATIONS: 1. Continue to wean FiO2 to maintain oxygen saturations at or above 90%. 2. Continue antimicrobials. Vancomycin can be discontinued. 3. Continue IV steroids as ordered. 4. Await results of GI infectious workup. 5. Continue appropriate DVT prophylaxis. 6. Encourage incentive spirometer use and mobilize patient as tolerated. 7. Given clarification of the patient's CODE STATUS to be DNR CCA without intubation, the patient can be transferred out of the medical intensive care unit from my perspective. IMPRESSIONS: 1. Acute hypoxemic respiratory failure secondary to pneumococcal pneumonia with associated sepsis The patient presented to the hospital with multiple days of progressive dyspnea and had evidence of lactic acidemia and a significantly decreased PF ratio based upon ABG analysis. The etiology for his presentation appears to be pneumococcal pneumonia. However, the patient has no pre-existing lung conditions. Therefore, he will be continued on appropriate antimicrobials and IV steroids. Vancomycin can be discontinued from my perspective. CODE STATUS was confirmed to be DNR CCA without intubation this morning. 2. Acute on chronic kidney disease Most likely prerenal in etiology in the setting of recent diarrheal illness. The patient did receive supplemental IV fluid hydration. Will continue to monitor urine output. No current indication for renal replacement therapy. 3. History of diabetes mellitus/hypertension/hyperlipidemia/GERD Complicates care, management, recovery and prognosis. Continue home medications as indicated. CODE STATUS: DNR CCA without intubation (discussed with patient) This note was generated with [employer] software. It may contain incorrect words, spelling, and punctuation that were not noted in checking the note before signing. HPI Consult Data Date of Consult: 10/28/24 HPI Narrative Reason for Consultation: Sepsis HPI Narrative: The patient is a 69-year-old male, with a history as outlined below, who presented to the emergency department on October 28 with shortness of breath and diarrhea. The patient reported that his symptoms initially began 3 to 4 days ago. He does report recent sick contact exposure to grandchildren. The patient has no pre-existing lung conditions. He does not utilize supplemental oxygen at his baseline. He is a non-smoker. On presentation to the emergency department, the patient was documented to be afebrile, but was tachycardic and tachypneic. Laboratory evaluation was notable for a white blood cell count of 11,000. ABG was notable for a pH of 7.38 with a pCO2 of 36 and pO2 of 69. PF ratio was noted to be 98.6 mmHg. Chemistry profile was notable for a creatinine of 1.91. Lactate was elevated at 2.5. CT chest/abdomen/pelvis demonstrated bilateral lower lobe airspace consolidations. Streptococcal urinary antigen was subsequently found to be positive. COVID, influenza and RSV PCR's were negative. Respiratory viral panel was unremarkable. Blood cultures were collected. The patient was subsequently placed on antimicrobials along with heated high flow oxygen. He was admitted to the medical intensive care unit for further management. This morning, the patient remains clinically stable on heated high flow oxygen. I did engage the patient in a CODE STATUS discussion. Following my explanation of the different options, the patient reported that he would not want to have CPR performed or be intubated. He was in agreement for a DNR CCA without intubation status. [facility] Medical History Screening for colon cancer Ventral hernia with bowel obstruction Osteoarthritis Otitis media, right Hyperkeratosis History of pneumothorax Hypertension Incarcerated ventral hernia Home Medications ?Medication ?Instructions ?Recorded ?Last Taken ?Type lisinopril 40 mg tablet 40 mg PO DAILY 04/09/17 01/21/19 05:00 History aspirin 81 mg tablet,delayed 81 mg PO DAILY 05/14/22 Unknown History release fenofibrate nanocrystallized 145 145 mg PO DAILY 05/14/22 Unknown History mg tablet multivitamin 1 tab PO DAILY 05/14/22 Unknown History atorvastatin 10 mg tablet 10 mg PO QDAY 07/30/24 Unknown History famotidine 40 mg tablet 40 mg PO QDAY 07/30/24 Unknown History metformin 500 mg tablet 500 mg PO QDAY 07/30/24 Unknown History metformin 500 mg tablet,extended 500 mg PO DAILY 10/28/24 Unknown History release 24 hr Allergy/AdvReac Type Severity Reaction Status Date / Time No Known Allergies Allergy Verified 10/28/24 00:49 Surgical History H/O hernia repair Social History Smoking Status: Former smoker alcohol intake: never ROS ROS Narrative 10 systems were reviewed with pertinent positives as noted in the HPI above. Physical Exam Const alert and no apparent distress General Appearance: cooperative HEENT normocephalic, head/scalp atraumatic and moist oral mucous membranes Eyes PERRL, EOMs intact bilaterally and conjunctivae normal Neck supple General: trachea midline Chest inspection of chest normal Resp normal respiratory effort Auscultation: diminished lung sounds; Negative for rales, rhonchi or wheezes Cardio regular rate and regular rhythm GI normal to inspection, nondistended, normoactive bowel sounds Extremity no clubbing, cyanosis or edema Skin no rashes or lesions noted Neuro CN's II-XII intact bilaterally, moves all extremities and no focal motor deficits Psych cooperative and affect normal Lab / Micro Data 10/28/24 00:58 10/28/24 00:58 Labs: Laboratory Results - last 24 hr 10/28/24 00:58: WBC 11.6 H, RBC 4.81, Hgb 14.6, Hct 44.5, MCV 92.5, MCH 30.4, MCHC 32.8, RDW Std Deviation 47.5 H, RDW Coeff of Daisha 13.9, Plt Count 317, MPV 11.6, Immature Gran % (Auto) 0.400, Neut % (Auto) 82.1 H, Lymph % (Auto) 13.8 L, Mckean % (Auto) 3.2, Eos % (Auto) 0.2, Baso % (Auto) 0.3, Absolute Neuts (auto) 9.5 H, Absolute Lymphs (auto) 1.60, Nucleated RBC % 0, Atypical Lymphocytes 2+, PT 13.8, INR 1.0, APTT 23.1 L, Sodium 141, Potassium 4.0, Chloride 108 H, Carbon Dioxide 23.0, Anion Gap 10, BUN 27 H, Creatinine 1.91 H, Estim Creat Clear Calc 38.75, Est GFR (MDRD) Af Amer 45 L, Est GFR (MDRD) Non-Af 37 L, BUN/Creatinine Ratio 14.1, Glucose 178 H, Calcium 9.0, Total Bilirubin 0.50, AST 30, ALT 41, Alkaline Phosphatase 44 L, Troponin I High Sens 6, Total Protein 7.9, Albumin 3.4, Globulin 4.5 H, Albumin/Globulin Ratio 0.8 L, TSH 2.420 10/28/24 01:41: Lactic Acid 2.5 H*, B-Natriuretic Peptide 12.6 10/28/24 06:15: Lactic Acid 1.7 Micro: Microbiology 10/28/24 05:15 Urine, Clean Catch Legionella Antigen - Final 10/28/24 05:15 Urine, Clean Catch Streptococcus pneumoniae Antigen (M - Final Streptococcus pneumonia Ag 10/28/24 05:15 Stool Stool Lactoferrin - Final 10/28/24 05:15 Stool Clostridioides difficile (PCR) - Final 10/28/24 03:28 Mucosa - Nasopharyngeal Respiratory Panel (PCR) - Final 10/28/24 01:42 Mucosa - Nose SARS-CoV-2, Influenza & RSV (PCR) - Final ABG Data ABG results: ABG 10/28/24 03:45 Specimen Type ART Sample Site R Radial pH 7.38 Bicarbonate Actual 21.6 L Total CO2 23 Base Excess -4 L O2 Saturation 93 L O2 % 70.0 ABG pCO2 36.4 ABG pO2 69 L Shola Test Positive O2 Delivery Device CPAP Vent Mode Not entered Clinical Comments Airvo 60L 70% Rhythm Strip Rhythm Strip: Sinus Tach Rate: 125 Ectopy: None Imaging Radiology Impression Chest X-Ray 10/28/24 01:25 IMPRESSION: 1. Bilateral lower lobe airspace opacities, [id number], likely relating to pneumonia. 2. Small left pleural effusion. Reading Location: [facility] Chest/Abdomen/Pelvis CT 10/28/24 03:29 IMPRESSION: 1. Airspace consolidations in the bilateral lower lobes which is large in the left lower lobe relating to pneumonia as well as interstitial and reticulonodular opacities in the bilateral lungs likely on an infectious inflammatory basis. 2. Mediastinal lymphadenopathy likely reactive to #1. 3. Hepatic steatosis. 4. Colonic diverticulosis without diverticulitis. 5. Cholelithiasis with no CT evidence of acute cholecystitis. 6. Additional findings as above. One or more dose reduction techniques were used (e.g., Automated exposure control, adjustment of the mA and/or kV according to patient size, use of iterative reconstruction technique). Reading Location: [facility] Sepsis Attestation Possible Source of Sepsis: Pulmonary Sepsis Organ Dysfunction Criteria Present: Lactic Acid > 2 mmol/L and PaO2/FiO2 ratio < 300 Charges/Coding Visit Charges Inpatient E&M: 47115 Init Hosp L3
[2024-10-28] MEDS: Multivitamins,Therapeutic Tablet 1 TABLET PO (08:43)
[2024-10-28] MEDS: Cholecalciferol (Vit D3) 125 MCG CAPSULE (5,000 UNITS) PO (08:43)
[2024-10-28] MEDS: Aspirin E.C. 81 MG Tablet PO (08:43)
[2024-10-28] MEDS: Ascorbic Acid 500 MG Tablet 1000 MG PO ×2 (08:43→16:12)
[2024-10-28] MEDS: Fenofibrate 145 MG Tablet PO (08:44)
[2024-10-28] MEDS: guaiFENesin 1,200 MG Tablet 1200 MG PO ×2 (08:44→21:45)
[2024-10-28] MEDS: Famotidine 20 MG Tablet 40 MG PO (08:44)
[2024-10-28] MEDS: Zinc Sulfate 50 mg zinc (220 mg) ORAL capsule PO (08:44)
[2024-10-28] MEDS: Lactobacillis Acidophilus 1 CAP PO ×4 (08:44→21:45)
--- NOTE | 2024-10-28 11:19 | CASEMGMT ---
ALEX RITTER Assessment Face to Face with patient for initial transition planning/care coordination assessment. ALEX RITTER introduced self and role at [facility], pt voices understanding. Pt is A&Ox4 and is resting comfortably in bed and is calm. Care providers, pharmacy, and demographics verified. Admitting dx: Sepsis, Pneumonia, Lactic Acidosis LACE Strata: 1 PCP: Lianne Pascal Specialists: Denies Preferred Pharmacy: [facility] Insurance: [facility] Prescription Benefit: Yes LNOK: Stacia oDrado (W) Living Arrangements: Pt lives with his and adult daughter in a trailer with a ramp to enter ADLs/IADLs: Ind Transportation: Self, DME: [facility], shower chair (for ). Functioning BGM with sufficient supplies. Pt is currently requiring additional oxygen and may qualify for home oxygen use. A verbal list of local in-network DME companies were provided to the pt at this time. Pt prefers [facility]. HHC/SNF: Denies Hx or needs Pt?s goal: Home Plan: Home no needs e/f potential new oxygen. PT is pending. At this time, the pt denies the need for HH, OP Tx, or CCN and states that he feels safe enough at home with his and daughter. Pt denies further needs at this time. Lukasz Pickering RN, CM
[2024-10-28] MEDS: Piperacil/Tazobactam 3.375 GM in 0.9% Normal Saline (50mL MB+) 50 ML IV ×2 (13:09→21:46)
[2024-10-28 15:20] LABS: Bacteria 0 SEEN /hpf (None Seen); Mucous, Urine 0 SEEN /hpf (<or=2+); Squamous Epithelial Cells - UA 0 SEEN /hpf (0-5)
[2024-10-28 15:30] LABS: Color, Urine Yellow (Yellow); Glucose, Dipstick Normal (Normal); Ketone-Dipstick Negative (Negative); Leukocyte Esterase-Dipstick Negative /ul (Negative); Nitrite-Dipstick Negative (Negative); Occult Blood-Urine Negative /ul (Negative); Protein-Dipstick 30 mg/dl (Negative); Urine Bilirubin Dipstick Negative (Negative); Urine Clarity Clear (Clear); Urine Urobilinogen Normal (Normal)
[2024-10-28 16:12] LABS: Amorphous Sediment 2+ URATE; Red Blood Cells-Urine 0 SEEN /hpf (0-5); White Blood Cells 0-5 SEEN /hpf (0-5)
[2024-10-28 16:13] LABS: Fine Granular Cast- Urine 0-5 SEEN /lpf (0-5); Hyaline Cast 0-5 SEEN /lpf (0-5)
--- NOTE | 2024-10-28 16:20 | PCM.HOSP.N ---
Hospitalist Note Patient was seen and examined today, he is still on Airvo at this time. I talked briefly with critical care about his care, he appears stable enough for transfer to PCU at this time, patient is a DNR CC arrest without intubation. Patient's strep urine antigen was positive, he remains on Zosyn at this time.
[2024-10-28] MEDS: Atorvastatin Calcium 10 MG Tablet PO (21:45)
[2024-10-28] MEDS: 0.9% Saline Lock 10 ML Syringe IV (21:46)
[2024-10-28] MEDS: MethylPREDNISolone 125 MG/2 ML Vial 60 MG IV (23:09)
[2024-10-29] VITALS (11 sets, daily range): BP systolic 118–155; BP diastolic 65–74; PULSE 62–85; RESP 18–22; TEMP 36.4–36.7; O2SAT 93–96; BMI 30.9
[2024-10-29] MEDS: DiphenhydrAMINE 25 MG Capsule PO (01:02)
[2024-10-29] MEDS: 0.9% Saline Lock 10 ML Syringe IV ×3 (04:45→22:38)
[2024-10-29] MEDS: Piperacil/Tazobactam 3.375 GM in 0.9% Normal Saline (50mL MB+) 50 ML IV ×3 (05:14→22:38)
[2024-10-29] MEDS: Heparin Injection (Vial) 5,000 UNIT/ML VIAL 5000 UNIT SC ×3 (05:20→22:37)
--- NOTE | 2024-10-29 05:45 | RAD_ITS ---
PROCEDURE: CHEST 1 VIEW (PORTABLE) REASON FOR EXAM: 69-year-old male, bilateral pneumonia with sepsis. TECHNIQUE: Frontal view of the chest. COMPARISON: CT chest, abdomen and pelvis and chest radiographs 10/28/2024. FINDINGS: The heart size is normal. Similar bilateral lower lung airspace opacities. Blunting of the left costophrenic angle, compatible with prominent epicardial fat seen on CT chest. No pleural effusion or pneumothorax. Degenerative changes are identified within the thoracic spine. RAD/Chest 1 View (Portable) IMPRESSION: Similar bilateral lower lung airspace opacities, compatible with pneumonia. Reading Location: [id number]
[2024-10-29 08:02] LABS: Absolute Neutrophil Count 14.2 X10^3/uL (2.0-7.7); Basophil# 0.02 X10^3/uL; Basophil% 0.1 % (0-1); Hematocrit 33.8 % (40-54); Hemoglobin 11.2 g/dL (13.0-16.5); Lymphocyte % 6.3 % (19-41); Mean Corp Hgb Conc 33.1 g/dL (32-36); Mean Corpuscular Hgb 30.2 pg (27.0-32.0); Mean Corpuscular Volume 91.1 fL (80-94); Mean Platelet Vol. 11.4 fl (6.2-12.0); Monocyte# 0.56 X10^3/uL; Monocyte% 3.5 % (0-10); NRBC Flagged by Analyzer 0 % (0-5); Neutrophil # 14.21 X10^3/uL (2.7-7.7); Platelet Count 280 K/mm3 (150-450); RBC Distribution Width CV 14.6 % (11.6-14.6); RBC Distribution Width SD 48.7 fl (35.1-43.9); Red Blood Count 3.71 M/mm3 (4.6-6.2)
[2024-10-29] MEDS: MethylPREDNISolone 125 MG/2 ML Vial 60 MG IV ×2 (08:30→22:38)
[2024-10-29] MEDS: guaiFENesin 1,200 MG Tablet 1200 MG PO ×2 (08:30→22:37)
[2024-10-29] MEDS: Ascorbic Acid 500 MG Tablet 1000 MG PO ×2 (08:30→17:27)
[2024-10-29] MEDS: Lactobacillis Acidophilus 1 CAP PO ×4 (08:31→22:37)
[2024-10-29] MEDS: Cholecalciferol (Vit D3) 125 MCG CAPSULE (5,000 UNITS) PO (08:31)
[2024-10-29] MEDS: Famotidine 20 MG Tablet 40 MG PO (08:31)
[2024-10-29] MEDS: Fenofibrate 145 MG Tablet PO (08:31)
[2024-10-29] MEDS: Aspirin E.C. 81 MG Tablet PO (08:32)
[2024-10-29] MEDS: Multivitamins,Therapeutic Tablet 1 TABLET PO (08:32)
[2024-10-29 09:02] LABS: ALB/GLOB Ratio 0.6 RATIO (0.9-2.4); AST(SGOT) 18 U/L (15-37); Alanine Aminotransfer ALT/SGPT 25 U/L (16-61); Albumin, Serum 2.6 g/dL (3.2-5.0); Alkaline Phosphatase 34 U/L (45-117); Anion Gap 5 (5-15); BUN 33 mg/dL (7-18); BUN/Creat Ratio 19.2 RATIO (10-20); Calcium,Total 8.6 mg/dL (8.5-10.1); Chloride 113 mmol/L (98-107); Creatinine, Serum 1.72 mg/dL (0.70-1.30); EST Glomerular Filtration Rate 42 mL/min (>60); Est Glom Filt Rate - Afr Amer 51 mL/min (>60); Estimated Creatinine Clearance 43.41 ml/min; Globulin 4.4 g/dL (2.2-4.2); Glucose 202 mg/dL (74-106); Magnesium 2.1 mg/dL (1.6-2.6); Phosphorus 2.4 mg/dL (2.5-4.9); Potassium 4.3 mmol/L (3.5-5.1); Sodium Level 140 mmol/L (136-145)
[2024-10-29 14:10] LABS: Hemoglobin A1c 6.9 % (3.8-5.6)
--- NOTE | 2024-10-29 19:42 | PN.HOSP_ITS ---
Reason for Visit Reason for Visit: Diagnoses Sepsis, unspecified organism (10/28/24) Other viral agents as the cause of diseases classified elsewhere (10/28/24) Elevated white blood cell count, unspecified (10/28/24) Obesity, class 1 (10/28/24) Acidosis, unspecified (10/28/24) Pneumonia, unspecified organism (10/28/24) Acute respiratory failure with hypoxia (10/28/24) Other specified respiratory disorders (10/28/24) Diarrhea, unspecified (10/28/24) Severe sepsis with septic shock (10/28/24) Subjective Subjective Patient was seen and examined today, he is currently on 5 L of oxygen. I spoke briefly with critical care about his medical care. Patient appears stable for transfer to PCU at this time. Objective Data Objective Data Vital Signs: Vital Signs Temp Pulse Resp BP Pulse Ox O2 Del Method O2 Flow Rate 98 F 75 18 152/71 H 94 High Flow 5 10/29/24 18:13 10/29/24 18:13 10/29/24 18:13 10/29/24 18:13 10/29/24 18:21 10/29/24 18:31 10/29/24 18:31 FiO2 45 10/29/24 07:27 Oxygen Flow Rate (L/min) 5 Oxygen Delivery Method High Flow Weight: 92.2 kg Body Mass Index (BMI) 30.9 Intake & Output: Intake and Output for Last 24 Hours 10/27/24 10/28/24 10/29/24 23:59 23:59 23:59 Intake Total 3950 / 3950 630 / 630 Output Total 200 / 200 600 / 600 Balance 3750 / 3750 30 / 30 Lab / Micro Data 10/29/24 07:48 10/29/24 07:48 Labs: Laboratory Results - last 24 hr 10/29/24 07:48: WBC 16.0 H, RBC 3.71 L, Hgb 11.2 L, Hct 33.8 L, MCV 91.1, MCH 30.2, MCHC 33.1, RDW Std Deviation 48.7 H, RDW Coeff of Daisha 14.6, Plt Count 280, MPV 11.4, Immature Gran % (Auto) 1.100 H, Neut % (Auto) 89.0 H, Lymph % (Auto) 6.3 L, Nance % (Auto) 3.5, Eos % (Auto) 0.0, Baso % (Auto) 0.1, Absolute Neuts (auto) 14.2 H, Absolute Lymphs (auto) 1.00, Nucleated RBC % 0, Sodium 140, Potassium 4.3, Chloride 113 H, Carbon Dioxide 21.0, Anion Gap 5, BUN 33 H, C reatinine 1.72 H, Estim Creat Clear Calc 43.41, Est GFR (MDRD) Af Amer 51 L, Est GFR (MDRD) Non-Af 42 L, BUN/Creatinine Ratio 19.2, Glucose 202 H, Hemoglobin A1c 6.9 H, Calcium 8.6, Phosphorus 2.4 L, Magnesium 2.1, Total Bilirubin 0.50, AST 18, ALT 25, Alkaline Phosphatase 34 L, Total Protein 7.0, Albumin 2.6 L, G lobulin 4.4 H, Albumin/Globulin Ratio 0.6 L Micro: Microbiology 10/28/24 05:15 Urine, Clean Catch Urine Culture - Preliminary Culture exhibits no growth. 10/28/24 05:15 Urine, Clean Catch Legionella Antigen - Final 10/28/24 05:15 Urine, Clean Catch Streptococcus pneumoniae Antigen (M - Final Streptococcus pneumonia Ag 10/28/24 05:15 Stool Stool Lactoferrin - Final 10/28/24 05:15 Stool Clostridioides difficile (PCR) - Final 10/28/24 03:28 Mucosa - Nasopharyngeal Respiratory Panel (PCR) - Final 10/28/24 01:42 Mucosa - Nose SARS-CoV-2, Influenza & RSV (PCR) - Final Radiography Diagnostic Testing: Radiology Impression Chest X-Ray 10/29/24 05:45 IMPRESSION: Similar bilateral lower lung airspace opacities, compatible with pneumonia. Reading Location: [facility] Rhythm Strip Rhythm Strip: Sinus Tach Rate: 125 Ectopy: None Physical Exam Const alert, oriented x3, no apparent distress and healthy appearing General Appearance: cooperative, well kempt and well developed Orientation / Consciousness: awake, oriented to person, oriented to place and oriented to time HEENT normocephalic, head/scalp atraumatic and moist oral mucous membranes Eyes PERRL, EOMs intact bilaterally and conjunctivae normal Neck supple, no JVD, thyroid normal and no carotid bruits General: trachea midline Resp normal respiratory effort, no retractions, no use of accessory muscles and clear to auscultation bilaterally Auscultation: Negative for rales, rhonchi or wheezes Cardio regular rate, regular rhythm, S1 normal heart sound, S2 normal heart sound, no murmurs, no rub and no gallops GI normal to inspection, nondistended, normoactive bowel sounds, soft to palpation, non-tender and non-distended Extremity no clubbing, cyanosis or edema Skin no rashes or lesions noted General Skin Exam: no breakdown Neuro oriented x3, CN's II-XII intact bilaterally, moves all extremities, no focal motor deficits and no sensory deficits noted Sensorium / Orientation: awake and alert Speech: speech normal Psych affect normal Assessment & Plan Assessment/Plan (1) Sepsis: QUALIFIERS: Sepsis type: sepsis due to unspecified organism S epsis acute organ dysfunction status: with acute organ dysfunction Severe sepsis acute organ dysfunction type: acute respiratory failure Acute respiratory failure type: with hypoxia Severe sepsis shock status: with septic shock Qualified Code(s): A41.9 - Sepsis, unspecified organism; R65.21 - Severe sepsis with septic shock; J96.01 - Acute respiratory failure with hypoxia PLAN: Plan 1. Sepsis-secondary to pneumococcal pneumonia-continue present antibiotic coverage, patient appears to be stable for transfer to PCU #2 strep pneumoniae (pneumococcal) pneumonia-continue present antibiotic coverage, pulmonary medicine is participating in his care #3 type 2 diabetes-continue fingerstick blood sugars with sliding scale insulin coverage #4 essential hypertension-continue present medications Total clinical time spent by myself addressing patient's medical issues, reviewing all of his data, and collaborating with patient's care team: 35 minutes Charges/Coding Visit Charges Inpatient E&M: 83320 Subs Hosp L2
[2024-10-29] MEDS: Atorvastatin Calcium 10 MG Tablet PO (22:37)
[2024-10-30] VITALS (8 sets, daily range): BP systolic 131–147; BP diastolic 73–83; PULSE 66–95; RESP 17–18; TEMP 36.4–36.9; O2SAT 91–96; BMI 30.3
[2024-10-30] MEDS: Piperacil/Tazobactam 3.375 GM in 0.9% Normal Saline (50mL MB+) 50 ML IV ×3 (05:46→21:42)
[2024-10-30] MEDS: Heparin Injection (Vial) 5,000 UNIT/ML VIAL 5000 UNIT SC ×3 (05:46→21:45)
[2024-10-30] MEDS: Famotidine 20 MG Tablet 40 MG PO (10:08)
[2024-10-30] MEDS: guaiFENesin 1,200 MG Tablet 1200 MG PO ×2 (10:08→21:45)
[2024-10-30] MEDS: 0.9% Saline Lock 10 ML Syringe IV ×3 (10:08→21:44)
[2024-10-30] MEDS: Multivitamins,Therapeutic Tablet 1 TABLET PO (10:08)
[2024-10-30] MEDS: Fenofibrate 145 MG Tablet PO (10:09)
[2024-10-30] MEDS: Lactobacillis Acidophilus 1 CAP PO ×4 (10:09→21:44)
[2024-10-30] MEDS: Aspirin E.C. 81 MG Tablet PO (10:09)
[2024-10-30] MEDS: Cholecalciferol (Vit D3) 125 MCG CAPSULE (5,000 UNITS) PO (10:09)
[2024-10-30] MEDS: MethylPREDNISolone 125 MG/2 ML Vial 60 MG IV ×2 (10:09→21:45)
[2024-10-30] MEDS: Ascorbic Acid 500 MG Tablet 1000 MG PO ×2 (10:09→16:17)
--- NOTE | 2024-10-30 18:51 | PN.HOSP_ITS ---
Reason for Visit Reason for Visit: Diagnoses Sepsis, unspecified organism (10/28/24) Other viral agents as the cause of diseases classified elsewhere (10/28/24) Elevated white blood cell count, unspecified (10/28/24) Obesity, class 1 (10/28/24) Acidosis, unspecified (10/28/24) Pneumonia, unspecified organism (10/28/24) Acute respiratory failure with hypoxia (10/28/24) Other specified respiratory disorders (10/28/24) Diarrhea, unspecified (10/28/24) Severe sepsis with septic shock (10/28/24) Subjective Subjective Patient was seen and examined today, he remains on 4 L of oxygen via nasal cannula, patient does not appear to be in any respiratory distress at rest. Objective Data Objective Data Vital Signs: Vital Signs Temp Pulse Resp BP Pulse Ox O2 Del Method O2 Flow Rate 97.6 F L 66 17 147/83 H 94 Nasal Cannula 4 10/30/24 16:19 10/30/24 16:19 10/30/24 16:19 10/30/24 16:19 10/30/24 16:23 10/30/24 16:23 10/30/24 16:23 FiO2 45 10/29/24 07:27 Oxygen Flow Rate (L/min) 4 Oxygen Delivery Method Nasal Cannula Weight: 90.6 kg Body Mass Index (BMI) 30.3 Intake & Output: Intake and Output for Last 24 Hours 10/28/24 10/29/24 10/30/24 23:59 23:59 23:59 Intake Total 3950 / 3950 630 / 630 150 / 150 Output Total 200 / 200 600 / 600 Balance 3750 / 3750 30 / 30 150 / 150 Lab / Micro Data 10/29/24 07:48 10/29/24 07:48 Micro: Microbiology 10/28/24 05:15 Stool Stool Lactoferrin - Final 10/28/24 05:15 Stool Clostridioides difficile (PCR) - Final 10/28/24 08:11 Stool Ova and Parasites - Final 10/28/24 05:15 Urine, Clean Catch Urine Culture - Final Culture exhibits no growth. 10/28/24 01:41 Blood Culture (Wb) - Anticubital Right Blood Culture - Preliminary No growth in 48 hours. 10/28/24 01:41 Blood Culture (Wb) - Left Forearm Blood Culture - Preliminary No growth in 48 hours. 10/28/24 05:15 Urine, Clean Catch Legionella Antigen - Final 10/28/24 05:15 Urine, Clean Catch Streptococcus pneumoniae Antigen (M - Final Streptococcus pneumonia Ag 10/28/24 03:28 Mucosa - Nasopharyngeal Respiratory Panel (PCR) - Final 10/28/24 01:42 Mucosa - Nose SARS-CoV-2, Influenza & RSV (PCR) - Final Rhythm Strip Rhythm Strip: Sinus Tach Rate: 125 Ectopy: None Physical Exam Narrative alert, oriented x3, no apparent distress and healthy appearing General Appearance: cooperative, well kempt and well developed Orientation / Consciousness: awake, oriented to person, oriented to place and oriented to time HEENT normocephalic, head/scalp atraumatic and moist oral mucous membranes Eyes PERRL, EOMs intact bilaterally and conjunctivae normal Neck supple, no JVD, thyroid normal and no carotid bruits General: trachea midline Resp normal respiratory effort, no retractions, no use of accessory muscles and clear to auscultation bilaterally Auscultation: Negative for rales, rhonchi or wheezes Cardio regular rate, regular rhythm, S1 normal heart sound, S2 normal heart sound, no murmurs, no rub and no gallops GI normal to inspection, nondistended, normoactive bowel sounds, soft to palpation, non-tender and non-distended Extremity no clubbing, cyanosis or edema Skin no rashes or lesions noted General Skin Exam: no breakdown Neuro oriented x3, CN's II-XII intact bilaterally, moves all extremities, no focal motor deficits and no sensory deficits noted Sensorium / Orientation: awake and alert Speech: speech normal Psych affect normal Assessment & Plan Assessment/Plan (1) Sepsis: QUALIFIERS: Sepsis type: sepsis due to unspecified organism S epsis acute organ dysfunction status: with acute organ dysfunction Severe sepsis acute organ dysfunction type: acute respiratory failure Acute respiratory failure type: with hypoxia Severe sepsis shock status: with septic shock Qualified Code(s): A41.9 - Sepsis, unspecified organism; R65.21 - Severe sepsis with septic shock; J96.01 - Acute respiratory failure with hypoxia PLAN: Plan 1. Sepsis-secondary to pneumococcal pneumonia-continue present antibiotic coverage #2 strep pneumoniae (pneumococcal) pneumonia-continue present antibiotic coverage #3 type 2 diabetes-continue fingerstick blood sugars with sliding scale insulin coverage #4 essential hypertension-continue present medications #5 chronic kidney disease stage IIIb secondary to diabetes-creatinine has remained stable, monitor BMP as needed Total clinical time spent by myself addressing patient's medical issues, reviewing all of his data, and collaborating with patient's care team: 35 minutes Charges/Coding Visit Charges Inpatient E&M: 95645 Subs Hosp L2
[2024-10-30] MEDS: Atorvastatin Calcium 10 MG Tablet PO (21:46)
[2024-10-31 04:00] VITALS: BP 114/83; PULSE 53; RESP 16; TEMP 36.9; O2SAT 97
[2024-10-31 04:40] VITALS: BMI 31.1
[2024-10-31] MEDS: Piperacil/Tazobactam 3.375 GM in 0.9% Normal Saline (50mL MB+) 50 ML IV ×2 (06:09→14:09)
[2024-10-31] MEDS: Heparin Injection (Vial) 5,000 UNIT/ML VIAL 5000 UNIT SC ×2 (06:09→14:05)
[2024-10-31 07:04] VITALS: O2SAT 94
[2024-10-31 07:28] LABS: Magnesium 2.4 mg/dL (1.6-2.6)
[2024-10-31 09:43] VITALS: BP 133/78; PULSE 58; RESP 20; TEMP 36.5; O2SAT 97
[2024-10-31] MEDS: MethylPREDNISolone 125 MG/2 ML Vial 60 MG IV (09:49)
[2024-10-31] MEDS: Cholecalciferol (Vit D3) 125 MCG CAPSULE (5,000 UNITS) PO (09:50)
[2024-10-31] MEDS: Multivitamins,Therapeutic Tablet 1 TABLET PO (09:50)
[2024-10-31] MEDS: Aspirin E.C. 81 MG Tablet PO (09:50)
[2024-10-31] MEDS: Ascorbic Acid 500 MG Tablet 1000 MG PO ×2 (09:50→16:15)
[2024-10-31] MEDS: Lactobacillis Acidophilus 1 CAP PO ×3 (09:50→21:10)
[2024-10-31] MEDS: Fenofibrate 145 MG Tablet PO (09:50)
[2024-10-31] MEDS: guaiFENesin 1,200 MG Tablet 1200 MG PO ×2 (09:50→21:10)
[2024-10-31] MEDS: Famotidine 20 MG Tablet 40 MG PO (09:50)
[2024-10-31] MEDS: 0.9% Saline Lock 10 ML Syringe IV (09:54)
[2024-10-31] MEDS: Ondansetron 4 MG/2 ML Vial IV (14:01)
[2024-10-31 16:13] VITALS: BP 148/75; PULSE 58; RESP 18; TEMP 36.8; O2SAT 94
--- NOTE | 2024-10-31 16:14 | PN.HOSP_ITS ---
Reason for Visit Reason for Visit: Diagnoses Sepsis, unspecified organism (10/28/24) Other viral agents as the cause of diseases classified elsewhere (10/28/24) Elevated white blood cell count, unspecified (10/28/24) Obesity, class 1 (10/28/24) Acidosis, unspecified (10/28/24) Pneumonia, unspecified organism (10/28/24) Acute respiratory failure with hypoxia (10/28/24) Other specified respiratory disorders (10/28/24) Diarrhea, unspecified (10/28/24) Severe sepsis with septic shock (10/28/24) Subjective Subjective Patient was seen and examined today, he complains of nausea. Patient is on 2 L of oxygen at the present time. I have decided to transition the patient over to oral antibiotics today and switch the patient to oral prednisone. Objective Data Objective Data Vital Signs: Vital Signs Temp Pulse Resp BP Pulse Ox O2 Del Method O2 Flow Rate 98.3 F 58 L 18 148/75 H 94 Nasal Cannula 2 10/31/24 16:13 10/31/24 16:13 10/31/24 16:13 10/31/24 16:13 10/31/24 16:13 10/31/24 16:13 10/31/24 16:13 FiO2 45 10/29/24 07:27 Oxygen Flow Rate (L/min) 2 Oxygen Delivery Method Nasal Cannula Weight: 93.1 kg Body Mass Index (BMI) 31.1 Intake & Output: Intake and Output for Last 24 Hours 10/29/24 10/30/24 10/31/24 23:59 23:59 23:59 Intake Total 630 / 630 150 / 150 300 / 300 Output Total 600 / 600 Balance 30 / 30 150 / 150 300 / 300 Lab / Micro Data 10/29/24 07:48 10/29/24 07:48 Labs: Laboratory Results - last 24 hr 10/31/24 06:25: Magnesium 2.4 Micro: Microbiology 10/28/24 05:15 Stool Stool Lactoferrin - Final 10/28/24 05:15 Stool Clostridioides difficile (PCR) - Final 10/28/24 08:11 Stool Ova and Parasites - Final 10/28/24 05:15 Urine, Clean Catch Urine Culture - Final Culture exhibits no growth. 10/28/24 01:41 Blood Culture (Wb) - Anticubital Right Blood Culture - Preliminary No growth in 48 hours. 10/28/24 01:41 Blood Culture (Wb) - Left Forearm Blood Culture - Preliminary No growth in 48 hours. 10/28/24 05:15 Urine, Clean Catch Legionella Antigen - Final 10/28/24 05:15 Urine, Clean Catch Streptococcus pneumoniae Antigen (M - Final Streptococcus pneumonia Ag 10/28/24 03:28 Mucosa - Nasopharyngeal Respiratory Panel (PCR) - Final 10/28/24 01:42 Mucosa - Nose SARS-CoV-2, Influenza & RSV (PCR) - Final Rhythm Strip Rhythm Strip: Sinus Tach Rate: 125 Ectopy: None Physical Exam Narrative alert, oriented x3, no apparent distress and healthy appearing General Appearance: cooperative, well kempt and well developed Orientation / Consciousness: awake, oriented to person, oriented to place and oriented to time HEENT normocephalic, head/scalp atraumatic and moist oral mucous membranes Eyes PERRL, EOMs intact bilaterally and conjunctivae normal Neck supple, no JVD, thyroid normal and no carotid bruits General: trachea midline Resp normal respiratory effort, no retractions, no use of accessory muscles and clear to auscultation bilaterally Auscultation: Negative for rales, rhonchi or wheezes Cardio regular rate, regular rhythm, S1 normal heart sound, S2 normal heart sound, no murmurs, no rub and no gallops GI normal to inspection, nondistended, normoactive bowel sounds, soft to palpation, non-tender and non-distended Extremity no clubbing, cyanosis or edema Skin no rashes or lesions noted General Skin Exam: no breakdown Neuro oriented x3, CN's II-XII intact bilaterally, moves all extremities, no focal motor deficits and no sensory deficits noted Sensorium / Orientation: awake and alert Speech: speech normal Psych affect normal Assessment & Plan Assessment/Plan (1) Bilateral pneumonia: QUALIFIERS: Pneumonia type: due to unspecified organism Lung location: unspecified part of lung Qualified Code(s): J18.9 - Pneumonia, unspecified organism (2) Sepsis: QUALIFIERS: Sepsis type: sepsis due to unspecified organism S epsis acute organ dysfunction status: with acute organ dysfunction Severe sepsis acute organ dysfunction type: acute respiratory failure Acute respiratory failure type: with hypoxia Severe sepsis shock status: with septic shock Qualified Code(s): A41.9 - Sepsis, unspecified organism; R65.21 - Severe sepsis with septic shock; J96.01 - Acute respiratory failure with hypoxia PLAN: Plan 1. Sepsis-secondary to pneumococcal pneumonia-I have switched the patient over to oral antibiotic-Keflex #2 strep pneumoniae (pneumococcal) pneumonia-continue present antibiotic coverage #3 type 2 diabetes-continue fingerstick blood sugars with sliding scale insulin coverage #4 essential hypertension-continue present medications #5 chronic kidney disease stage IIIb secondary to diabetes-creatinine has remained stable, monitor BMP as needed Total clinical time spent by myself addressing patient's medical issues, reviewing all of his data, and collaborating with patient's care team: 35 minutes Charges/Coding Visit Charges Inpatient E&M: 95953 Subs Hosp L2
[2024-10-31 21:10] VITALS: BP 150/72; PULSE 93; RESP 18; TEMP 37.2; O2SAT 93
[2024-10-31] MEDS: Atorvastatin Calcium 10 MG Tablet PO (21:10)
[2024-10-31] MEDS: Cephalexin 500 MG Capsule PO (21:10)
[2024-11-01] VITALS (8 sets, daily range): BP systolic 140–152; BP diastolic 68–84; PULSE 58–68; RESP 16–20; TEMP 36.2–36.8; O2SAT 86–97; BMI 32.2
[2024-11-01] MEDS: Cephalexin 500 MG Capsule PO ×3 (05:20→20:45)
[2024-11-01] MEDS: 0.9% Saline Lock 10 ML Syringe IV ×2 (08:28→20:46)
[2024-11-01] MEDS: Ondansetron 4 MG/2 ML Vial IV (08:28)
[2024-11-01] MEDS: Ascorbic Acid 500 MG Tablet 1000 MG PO ×2 (08:31→17:00)
[2024-11-01] MEDS: Lactobacillis Acidophilus 1 CAP PO ×4 (08:31→20:45)
[2024-11-01] MEDS: Famotidine 20 MG Tablet 40 MG PO (08:31)
[2024-11-01] MEDS: Fenofibrate 145 MG Tablet PO (08:32)
[2024-11-01] MEDS: Cholecalciferol (Vit D3) 125 MCG CAPSULE (5,000 UNITS) PO (08:32)
[2024-11-01] MEDS: Multivitamins,Therapeutic Tablet 1 TABLET PO (08:32)
[2024-11-01] MEDS: guaiFENesin 1,200 MG Tablet 1200 MG PO ×2 (08:32→20:45)
[2024-11-01] MEDS: Aspirin E.C. 81 MG Tablet PO (08:32)
[2024-11-01] MEDS: predniSONE 20 MG Tablet PO (08:32)
--- NOTE | 2024-11-01 11:52 | RAD_ITS ---
PROCEDURE: CHEST PA AND LATERAL REASON FOR EXAM: 69-year-old male, pneumonia. TECHNIQUE: Frontal and lateral views of the chest. COMPARISON: Chest radiograph 10/29/2014. FINDINGS: The heart size is normal. The mediastinal contour is unremarkable. Similar bilateral lower lung airspace opacities. No pleural effusion or pneumothorax. Degenerative changes are identified within the thoracic spine. The visualized upper abdomen is unremarkable. RAD/Chest PA and Lateral IMPRESSION: Stable bilateral lower lung airspace opacities, compatible with pneumonia. Reading Location: [id number]
[2024-11-01] MEDS: Heparin Injection (Vial) 5,000 UNIT/ML VIAL 5000 UNIT SC ×2 (14:17→20:45)
--- NOTE | 2024-11-01 18:07 | PCM.PN.HOSP ---
Reason for Visit Reason for Visit: Diagnoses Sepsis, unspecified organism (10/28/24) Other viral agents as the cause of diseases classified elsewhere (10/28/24) Elevated white blood cell count, unspecified (10/28/24) Obesity, class 1 (10/28/24) Acidosis, unspecified (10/28/24) Pneumonia, unspecified organism (10/28/24) Acute respiratory failure with hypoxia (10/28/24) Other specified respiratory disorders (10/28/24) Diarrhea, unspecified (10/28/24) Severe sepsis with septic shock (10/28/24) Subjective Subjective Patient was seen and examined today, he remains on 3 L of oxygen, I repeated his chest x-ray which showed stable bilateral opacities suggestive of pneumonia. I told the patient that he might be able to go home tomorrow but he would go home on oxygen. Objective Data Objective Data Vital Signs: Vital Signs Temp Pulse Resp BP Pulse Ox O2 Del Method O2 Flow Rate 98.3 F 62 16 152/84 H 97 Nasal Cannula 3 11/01/24 17:00 11/01/24 17:00 11/01/24 17:00 11/01/24 17:00 11/01/24 17:00 11/01/24 17:00 11/01/24 17:00 FiO2 45 10/29/24 07:27 Oxygen Flow Rate (L/min) 3 Oxygen Delivery Method Nasal Cannula Weight: 96.1 kg Body Mass Index (BMI) 32.2 Intake & Output: Intake and Output for Last 24 Hours 10/30/24 10/31/24 11/01/24 23:59 23:59 23:59 Intake Total 150 / 150 348.13 / 348.13 Balance 150 / 150 348.13 / 348.13 Lab / Micro Data 10/29/24 07:48 10/29/24 07:48 Micro: Microbiology 10/28/24 05:15 Stool Stool Lactoferrin - Final 10/28/24 05:15 Stool Clostridioides difficile (PCR) - Final 10/28/24 08:11 Stool Ova and Parasites - Final 10/28/24 05:15 Urine, Clean Catch Urine Culture - Final Culture exhibits no growth. 10/28/24 01:41 Blood Culture (Wb) - Anticubital Right Blood Culture - Preliminary No growth in 48 hours. 10/28/24 01:41 Blood Culture (Wb) - Left Forearm Blood Culture - Preliminary No growth in 48 hours. 10/28/24 05:15 Urine, Clean Catch Legionella Antigen - Final 10/28/24 05:15 Urine, Clean Catch Streptococcus pneumoniae Antigen (M - Final Streptococcus pneumonia Ag 10/28/24 03:28 Mucosa - Nasopharyngeal Respiratory Panel (PCR) - Final 10/28/24 01:42 Mucosa - Nose SARS-CoV-2, Influenza & RSV (PCR) - Final Radiography Diagnostic Testing: Radiology Impression Chest X-Ray 11/01/24 11:52 IMPRESSION: Stable bilateral lower lung airspace opacities, compatible with pneumonia. Reading Location: [facility] Rhythm Strip Rhythm Strip: Sinus Tach Rate: 125 Ectopy: None Physical Exam Narrative alert, oriented x3, no apparent distress and healthy appearing General Appearance: cooperative, well kempt and well developed Orientation / Consciousness: awake, oriented to person, oriented to place and oriented to time HEENT normocephalic, head/scalp atraumatic and moist oral mucous membranes Eyes PERRL, EOMs intact bilaterally and conjunctivae normal Neck supple, no JVD, thyroid normal and no carotid bruits General: trachea midline Resp normal respiratory effort, no retractions, no use of accessory muscles and clear to auscultation bilaterally Auscultation: Negative for rales, rhonchi or wheezes Cardio regular rate, regular rhythm, S1 normal heart sound, S2 normal heart sound, no murmurs, no rub and no gallops GI normal to inspection, nondistended, normoactive bowel sounds, soft to palpation, non-tender and non-distended Extremity no clubbing, cyanosis or edema Skin no rashes or lesions noted General Skin Exam: no breakdown Neuro oriented x3, CN's II-XII intact bilaterally, moves all extremities, no focal motor deficits and no sensory deficits noted Sensorium / Orientation: awake and alert Speech: speech normal Psych affect normal Assessment & Plan Assessment/Plan (1) Bilateral pneumonia: QUALIFIERS: Pneumonia type: due to unspecified organism Lung location: unspecified part of lung Qualified Code(s): J18.9 - Pneumonia, unspecified organism (2) Sepsis: QUALIFIERS: Sepsis type: sepsis due to unspecified organism Sepsis acute organ dysfunction status: with acute organ dysfunction Severe sepsis acute organ dysfunction type: acute respiratory failure Acute respiratory failure type: with hypoxia Severe sepsis shock status: with septic shock Qualified Code(s): A41.9 - Sepsis, unspecified organism; R65.21 - Severe sepsis with septic shock; J96.01 - Acute respiratory failure with hypoxia PLAN: Plan 1. Sepsis-secondary to pneumococcal pneumonia-I have switched the patient over to oral antibiotic-Keflex #2 strep pneumoniae (pneumococcal) pneumonia-continue present antibiotic coverage #3 type 2 diabetes-continue fingerstick blood sugars with sliding scale insulin coverage #4 essential hypertension-continue present medications #5 chronic kidney disease stage IIIb secondary to diabetes-creatinine has remained stable, monitor BMP as needed #6 hypoxia secondary to #1-patient is currently requiring 3 L of oxygen, he will need a walking pulse oximetry prior to discharge, I suspect the patient will need to go home on home O2 at least temporarily. Total clinical time spent by myself addressing patient's medical issues, reviewing all of his data, and collaborating with patient's care team: 35 minutes Charges/Coding Visit Charges Inpatient E&M: 78994 Subs Hosp L2
[2024-11-01] MEDS: Atorvastatin Calcium 10 MG Tablet PO (20:45)
[2024-11-02 04:00] VITALS: BMI 32.1
[2024-11-02 05:30] VITALS: BP 148/79; PULSE 66; RESP 18; TEMP 37.1; O2SAT 93
[2024-11-02] MEDS: Cephalexin 500 MG Capsule PO ×2 (05:34→13:34)
[2024-11-02] MEDS: Heparin Injection (Vial) 5,000 UNIT/ML VIAL 5000 UNIT SC (05:35)
[2024-11-02] MEDS: Ascorbic Acid 500 MG Tablet 1000 MG PO (07:55)
[2024-11-02] MEDS: predniSONE 20 MG Tablet PO (07:55)
[2024-11-02] MEDS: Aspirin E.C. 81 MG Tablet PO (07:55)
[2024-11-02] MEDS: Multivitamins,Therapeutic Tablet 1 TABLET PO (07:55)
[2024-11-02] MEDS: Famotidine 20 MG Tablet 40 MG PO (07:55)
[2024-11-02] MEDS: Lactobacillis Acidophilus 1 CAP PO ×2 (07:56→13:34)
[2024-11-02] MEDS: Fenofibrate 145 MG Tablet PO (07:56)
[2024-11-02] MEDS: Cholecalciferol (Vit D3) 125 MCG CAPSULE (5,000 UNITS) PO (07:56)
[2024-11-02] MEDS: guaiFENesin 1,200 MG Tablet 1200 MG PO (07:56)
[2024-11-02 07:58] VITALS: O2SAT 84
[2024-11-02 08:53] VITALS: O2SAT 84; O2SAT 88; O2SAT 89; O2SAT 90
[2024-11-02 10:09] LABS: Hematocrit 40.4 % (40-54); Mean Corp Hgb Conc 32.2 g/dL (32-36); Mean Corpuscular Volume 90.2 fL (80-94); Mean Platelet Vol. 11.4 fl (6.2-12.0); Platelet Count 404 K/mm3 (150-450); RBC Distribution Width CV 13.6 % (11.6-14.6); Red Blood Count 4.48 M/mm3 (4.6-6.2); White Blood Count 9.9 K/mm3 (4.4-11.0)
[2024-11-02 10:32] LABS: Anion Gap 8 (5-15); BUN 40 mg/dL (7-18); BUN/Creat Ratio 29.4 RATIO (10-20); Chloride 107 mmol/L (98-107); Creatinine, Serum 1.36 mg/dL (0.70-1.30); EST Glomerular Filtration Rate 55 mL/min (>60); Est Glom Filt Rate - Afr Amer 66 mL/min (>60); Estimated Creatinine Clearance 55.98 ml/min; Glucose 119 mg/dL (74-106); Potassium 3.9 mmol/L (3.5-5.1); Sodium Level 139 mmol/L (136-145)
[2024-11-02 11:30] VITALS: BP 136/77; PULSE 66; RESP 18; TEMP 37.1; O2SAT 92
--- NOTE | 2024-11-02 12:36 | DCINST_ITS ---
Discharge Instructions Diet Discharge Diet: No restrictions DC O2, CPAP, BIPAP needs RN Home O2 Qualification: Home O2 Qualification: Is the patient on home oxygen No 11/02/24 08:53 Home O2 Qualification: AT REST 1- Pulse Ox at rest 84 11/02/24 08:53 2- Pulse Ox at rest 89 11/02/24 08:53 2- Oxygen Flow Rate at rest 2 11/02/24 08:53 Home O2 Qualification: WITH AMBULATION 1- Pulse Ox with ambulation 88 11/02/24 08:53 1- Oxygen Flow Rate with 2 11/02/24 08:53 ambulation 2- Pulse Ox with ambulation 90 11/02/24 08:53 2- Oxygen Flow Rate with 3 11/02/24 08:53 ambulation Home O2 Discharge instructions: Yes Type of respiratory needs?: Oxygen Oxygen frequency: Continuous Continuous oxygen liters per minute: 2 and With Ambulation Oxygen liters per minute during Ambulation: 3 Dressing / Incision Discharge Activity: No Restrictions Follow Up Care Test Results: Test results from this visit will be discussed in further detail at your follow- up appointment, if applicable. Discharge Plan Admission Admit Date/Time: 10/28/24 03:19 Primary Reason for Your Visit: Shortness of breath Attending Provider: Shaw Lomas Primary Care Provider: Lianne Pascal Consulting Providers: Scot Simmons; Umer Tian; Kendall Kaur; Fortunato Garrett; Joaquín Ndiaye; Scot Doyle; Jesse Pena; Carlos Giron; Thania Higginbotham; Deep Brandt; Piotr Raya; Valerio Hanna; Cely Castillo; Klarissa Laboy; Gertrude,Emily; Destiney,Jc; Roc Rehman; Juan Duncan; David Vila; Marcia Wolf; Lynnette Linares; Stone Domínguez; Ede Rodarte; Nasim Tran; Tito Martin Instructions Additional Instructions / Restrictions: Please Keflex 3 times daily for 2 more days to complete full course of antibiotics. Please wear 2 L of oxygen at rest and 3 L with exertion to maintain oxygen saturations greater than 90%. Follow-up with your primary care doctor as needed. Discharge Orders/Prescriptions Prescriptions: New cephalexin 500 mg Capsule 500 mg PO Q8 2 Days Qty: 6 0RF Continued multivitamin Tablet 1 tab PO DAILY aspirin 81 mg tablet,delayed release (DR/EC) 81 mg PO DAILY fenofibrate nanocrystallized 145 mg tablet 145 mg PO DAILY atorvastatin 10 mg tablet 10 mg PO QDAY famotidine 40 mg tablet 40 mg PO QDAY lisinopril 40 MG tablet 40 mg PO DAILY metformin 500 mg tablet extended release 24 hr 500 mg PO DAILY Referrals / Follow Up: Lianne Pascal MD [Primary Care Provider] - Disposition Disposition (needs filled in before D/C Order can be placed): Home, Self Care
--- NOTE | 2024-11-02 12:39 | PCM.DC.SUM ---
Providers Date of Admission: 10/28/24 Date of Discharge: 11/02/24 Primary Care Physician: Dr. Lianne Pascal MD Consultations 10/28/24 04:35 Consult: Maintenance Leader / Pulmonary Medicine Routine Consulting Provider: Intensivists/Pulmonary Med Reason for Consult: Bilateral PNA, Sepsis, Lactic Acidosis and Respiratory Failure on Airvo. EMERGENT Consult: No MD Notified: Yes Date Notified: 10/28/24 Time Notified: 06:18 Method of Notification: Text Reason For Visit: SEPSIS, PNEUMONIA, LACTIC ACIDOSIS AND ACUTE Diagnosis Discharge Diagnosis (1) Bilateral pneumonia: Status: Acute Code(s): J18.9 - Pneumonia, unspecified organism Qualifiers: Lung location: unspecified part of lung Pneumonia type: due to unspecified organism Qualified Code(s): J18.9 - Pneumonia, unspecified organism (2) Sepsis: Status: Acute Code(s): A41.9 - Sepsis, unspecified organism Qualifiers: Acute respiratory failure type: with hypoxia Sepsis acute organ dysfunction status: with acute organ dysfunction Sepsis type: sepsis due to unspecified organism Severe sepsis acute organ dysfunction type: acute respiratory failure Severe sepsis shock status: with septic shock Qualified Code(s): A41.9 - Sepsis, unspecified organism; R65.21 - Severe sepsis with septic shock; J96.01 - Acute respiratory failure with hypoxia Medications at Discharge Home Medications lisinopril 40 mg tablet 40 mg PO DAILY blood pressure 04/09/17 aspirin 81 mg tablet,delayed release 81 mg PO DAILY heart health 05/14/22 fenofibrate nanocrystallized 145 mg tablet 145 mg PO DAILY cholesterol 05/14/22 multivitamin 1 tab PO DAILY vitamin 05/14/22 atorvastatin 10 mg tablet 10 mg PO QDAY cholesterol 07/30/24 famotidine 40 mg tablet 40 mg PO QDAY reflux 07/30/24 metformin 500 mg tablet 500 mg PO QDAY 07/30/24 metformin 500 mg tablet,extended release 24 hr 500 mg PO DAILY diabetes 10/28/24 cephalexin 500 mg capsule 500 mg PO Q8 2 days #6 caps 11/02/24 Hospital Course Operations None Procedures EKG and - (Chest x-ray x 3, CT chest abdomen pelvis) Summary of Care Provided Minutes Spent on Discharge: 35 Hospital Course: Patient is a 69-year-old male who presented [facility] ED on 10/28/2024 with flulike symptoms and shortness of breath. Hospital course as noted below. Patient discharged home in stable condition on 11/02. 1. Acute hypoxemic respiratory failure secondary to Streptococcus pneumonia with associated sepsis ? Pulmonology followed. Not on home O2, required up to 60 L high flow nasal cannula during hospitalization. CT chest showed airspace consolidations in bilateral lower lobes larger in the left lower lobe along with interstitial and reticulonodular opacities and mediastinal with adenopathy all presumed secondary to infection. Streptococcus pneumonia urine antigen positive. Met sepsis criteria with acute respiratory failure, lactic acidemia and respiratory source. Improved significantly with IV steroids and IV antibiotics during hospitalization. However, completed O2 testing on day of discharge and did require 2 L nasal cannula at rest and 3 L with exertion. Oxygen prescription sent. Will complete 2 more days of antibiotics on discharge for 7-day course total. 2. DEL on CKD3a ? Creatinine 1.9 on admit, improved back to baseline around 1.3 by discharge. Was presumed secondary to sepsis with dehydration and improved with IV fluids and treatment of sepsis as noted above. Chronic medical conditions: ? Class I obesity: BMI 32 on admit. Encouraged lifestyle modifications. Complicated hospital course, care and prognosis. ? Type 2 diabetes mellitus: Continue home metformin on discharge. ? Hypertension: Continue home lisinopril. ? Hyperlipidemia: Continue home statin and fenofibrate. ? GERD: Continue home Pepcid. Total clinical time spent by myself addressing the patient's medical issues, reviewing all the data, and collaborating with patient's care team: 35 minutes. Physical Exam Const alert, oriented x3 and no apparent distress General Appearance: cooperative and comfortable HEENT normocephalic, head/scalp atraumatic, hearing grossly normal bilaterally, nasal mucous membranes and turbinates normal and moist oral mucous membranes Eyes PERRL, EOMs intact bilaterally and conjunctivae normal Neck full ROM Chest inspection of chest normal Resp normal respiratory effort and no use of accessory muscles Resp Narrative: Breathing comfortably on 2 L nasal cannula at rest. Mildly diminished breath sounds bilaterally but no wheezing or crackles noted. Cardio regular rate, regular rhythm, no murmurs and peripheral pulses 2+ throughout GI normal to inspection, nondistended, normoactive bowel sounds, soft to palpation, non-tender and non-distended Back/Spine normal ROM Extremity normal to inspection, full ROM and no pedal edema Skin no rashes or lesions noted Neuro moves all extremities and no focal motor deficits Speech: speech normal Motor Exam: strength 5/5 throughout Psych mental status grossly normal Weight / BMI Weight Weight: 96 kg Body Mass Index (BMI) 32.1 ABG / Lab / Microbiology Data 11/02/24 09:51 11/02/24 09:51 Laboratory: Laboratory Results - last 24 hr 11/02/24 09:51: WBC 9.9, RBC 4.48 L, Hgb 13.0, Hct 40.4, MCV 90.2, MCH 29.0, MCHC 32.2, RDW Std Deviation 45.0 H, RDW Coeff of Daisha 13.6, Plt Count 404, MPV 11.4, Sodium 139, Potassium 3.9, Chloride 107, Carbon Dioxide 23.0, Anion Gap 8, BUN 40 H, Creatinine 1.36 H, Estim Creat Clear Calc 55.98, Est GFR (MDRD) Af Amer 66, Est GFR (MDRD) Non-Af 55 L, BUN/Creatinine Ratio 29.4 H, Glucose 119 H, Calcium 9.0 Microbiology: Microbiology 10/28/24 01:41 Blood Culture (Wb) - Anticubital Right Blood Culture - Final No growth in 5 days. 10/28/24 01:41 Blood Culture (Wb) - Left Forearm Blood Culture - Final No growth in 5 days. 10/28/24 05:15 Stool Stool Lactoferrin - Final 10/28/24 05:15 Stool Clostridioides difficile (PCR) - Final 10/28/24 08:11 Stool Ova and Parasites - Final 10/28/24 05:15 Urine, Clean Catch Urine Culture - Final Culture exhibits no growth. 10/28/24 05:15 Urine, Clean Catch Legionella Antigen - Final 10/28/24 05:15 Urine, Clean Catch Streptococcus pneumoniae Antigen (M - Final Streptococcus pneumonia Ag 10/28/24 03:28 Mucosa - Nasopharyngeal Respiratory Panel (PCR) - Final 10/28/24 01:42 Mucosa - Nose SARS-CoV-2, Influenza & RSV (PCR) - Final D/C Instructions Discharge Diet: No restrictions DC O2, CPAP, BIPAP Needs RN Home O2 Qualification: Home O2 Qualification: Is the patient on home oxygen No 11/02/24 08:53 Home O2 Qualification: AT REST 1- Pulse Ox at rest 84 11/02/24 08:53 2- Pulse Ox at rest 89 11/02/24 08:53 2- Oxygen Flow Rate at rest 2 11/02/24 08:53 Home O2 Qualification: WITH AMBULATION 1- Pulse Ox with ambulation 88 11/02/24 08:53 1- Oxygen Flow Rate with 2 11/02/24 08:53 ambulation 2- Pulse Ox with ambulation 90 11/02/24 08:53 2- Oxygen Flow Rate with 3 11/02/24 08:53 ambulation PSN CPAP & BiPAP: BiPAP & CPAP Settings per PSN Mode AIRVO 10/29/24 07:27 Bipap Delivery Device Nasal Pillows 10/29/24 07:27 Fraction of Inspired Oxygen ( 45 10/29/24 07:27 FIO2) Total Flow Rate 50 10/29/24 07:27 Home O2 Discharge instructions: Yes Type of respiratory needs?: Oxygen Oxygen frequency: Continuous Continuous oxygen liters per minute: 2 and With Ambulation Oxygen liters per minute during Ambulation: 3 DC home with Oxygen: Yes Home O2 MD Review: I have reviewed the oxygen testing, and the patient qualifies for home oxygen equipment and portability. The patient is mobile in the home and the community. Meaningful Use Info Meaningful Use Meaningful Use Diagnoses (Choose all that apply): None applicable Ischemic Stroke Statin Dosing Therapy Reference: STATIN DOSE THERAPY REFERENCE: * Patients > 75 years receive moderate or high dose statin therapy. * Patients 75 years or YOUNGER should receive HIGH intensity statin dose unless contraindicated. You will be required to document reason for non-treatment if statin daily dose does not meet guidelines. HIGH DOSE STATIN THERAPY DAILY Atorvastatin > than or = to 40 mg Rosuvastatin > than or = to 20 mg Amlodipine + Atorvastatin > than or = to 2.5/40 mg Ezetimibe + Simvastatin 10/80 mg Simvastatin 80mg Discharge Plan Admission Admit Date/Time: 10/28/24 03:19 Primary Reason for Your Visit: Shortness of breath Attending Provider: Shaw Lomas Primary Care Provider: Lianne Pascal Consulting Providers: Scot Simmons; Umer Tian; Kendall Kaur; Fortunato Garrett; Joaquín Ndiaye; Scot Doyle; Jesse Pena; Carlos Giron; Thania Higginbotham; Deep Brandt; Piotr Raya; Valerio Hanna; Cely Castillo; Klarissa Laboy; Emily Loredo; Jc Cabello; Roc Rehman; Juan Duncan; David Vila; Marcia Wolf; Lynnette Linares; Stone Domígnuez; Ede Rodarte; Nasim Tran; Tito Martin Instructions Additional Instructions / Restrictions: Please continue Keflex 3 times daily for 2 more days to complete full course of antibiotics. Please wear 2 L of oxygen at rest and 3 L with exertion to maintain oxygen saturations greater than 90%. Follow-up with your primary care doctor as needed. Discharge Orders/Prescriptions Prescriptions: New cephalexin 500 mg Capsule 500 mg PO Q8 2 Days Qty: 6 0RF Continued multivitamin Tablet 1 tab PO DAILY aspirin 81 mg tablet,delayed release (DR/EC) 81 mg PO DAILY fenofibrate nanocrystallized 145 mg tablet 145 mg PO DAILY atorvastatin 10 mg tablet 10 mg PO QDAY famotidine 40 mg tablet 40 mg PO QDAY lisinopril 40 MG tablet 40 mg PO DAILY metformin 500 mg tablet extended release 24 hr 500 mg PO DAILY Referrals / Follow Up: Lianne Pascal MD [Primary Care Provider] - Disposition Disposition (needs filled in before D/C Order can be placed): Home, Self Care Charges/Coding Visit Charges Inpatient E&M: 63790 Disch Hosp >30min
--- NOTE | 2024-11-02 12:40 | PCM.HOSP.N ---
Hospitalist Note I have reviewed the oxygen testing, and this patient qualifies for the home equipment and portability. The patient is mobile in the home and the community.
--- NOTE | 2024-11-02 13:17 | CASEMGMT ---
Patient has order for discharge. Patient qualifies for home oxygen, script received. ALEX CM in to discuss needs at discharge. Patient prefers [employer] for home oxygen. Patient denied further questions or concerns. ALEX RITTER sent referral to [employer] via [facility] and arranged for oxygen tank to be delivered to patient's room.
--- NOTE | 2024-11-02 14:25 | PHA.DC.MC.R ---
Pharmacy [facility] has performed discharge medication reconciliation and counseling for this patient. The patient's discharge medication list was reviewed for discrepancies and discrepancies were resolved. The patient was counseled on the following discharge medications and changes in medications for homegoing were reviewed. 1. KEARELI The Reason for Use, instructions for use, and potential side effects were reviewed for all new medications. The patient's questions regarding all of their medications were answered. The patient was able to verbally demonstrate an understanding of their discharge medications. Medications at Discharge Home Medications lisinopril 40 mg tablet 40 mg PO DAILY blood pressure 04/09/17 aspirin 81 mg tablet,delayed release 81 mg PO DAILY heart health 05/14/22 fenofibrate nanocrystallized 145 mg tablet 145 mg PO DAILY cholesterol 05/14/22 multivitamin 1 tab PO DAILY vitamin 05/14/22 atorvastatin 10 mg tablet 10 mg PO QDAY cholesterol 07/30/24 famotidine 40 mg tablet 40 mg PO QDAY reflux 07/30/24 metformin 500 mg tablet 500 mg PO QDAY 07/30/24 metformin 500 mg tablet,extended release 24 hr 500 mg PO DAILY diabetes 10/28/24 cephalexin 500 mg capsule 500 mg PO Q8 2 days #6 caps 11/02/24
== END 2024-11-02 16:31 | disposition home or self-care (01) | DRG 871 ==
LOC: ED 02:39 → ICU 03:32 → PCU 10-29 17:50
PROVIDERS: Admitting Provider Internal Medicine; Emergency Provider Emergency Medicine; PCP Family Medicine; Visit Provider Hospitalist
DX: A40.3 Sepsis due to Streptococcus pneumoniae (principal); J96.01 Acute respiratory failure with hypoxia; R65.21 Severe sepsis with septic shock; J13 Pneumonia due to Streptococcus pneumoniae; E87.20 Acidosis, unspecified; J90 Pleural effusion, not elsewhere classified; N17.9 Acute kidney failure, unspecified; Z66 Do not resuscitate; K76.89 Other specified diseases of liver; E11.22 Type 2 diabetes mellitus with diabetic chronic kidney disease; N18.32 Chronic kidney disease, stage 3b; I12.9 Hypertensive chronic kidney disease with stage 1 through stage 4 chronic kidney disease, or unspecified chronic kidney disease; Z68.32 Body mass index [BMI] 32.0-32.9, adult; K76.0 Fatty (change of) liver, not elsewhere classified; K21.9 Gastro-esophageal reflux disease without esophagitis; R19.7 Diarrhea, unspecified; E78.5 Hyperlipidemia, unspecified; L85.9 Epidermal thickening, unspecified; M41.86 Other forms of scoliosis, lumbar region; K57.30 Diverticulosis of large intestine without perforation or abscess without bleeding; I83.93 Asymptomatic varicose veins of bilateral lower extremities; I95.9 Hypotension, unspecified; E78.1 Pure hyperglyceridemia; M16.12 Unilateral primary osteoarthritis, left hip; R11.2 Nausea with vomiting, unspecified; Z79.84 Long term (current) use of oral hypoglycemic drugs; Z11.52 Encounter for screening for COVID-19; Z79.82 Long term (current) use of aspirin; Z87.891 Personal history of nicotine dependence; Z20.828 Contact with and (suspected) exposure to other viral communicable diseases; Z79.02 Long term (current) use of antithrombotics/antiplatelets; R05.9 Cough, unspecified; R59.0 Localized enlarged lymph nodes; N28.1 Cyst of kidney, acquired; E66.811 Obesity, class 1; Z79.899 Other long term (current) drug therapy
CPT/HCPCS: 36415; 36600; 71045; 71046; 71250; 74176; 80048; 80053; 81001; 82803; 83036; 83605; 83630; 83735; 83880; 84100; 84443; 84484; 85025; 85027; 85610; 85730; 87040; 87086; 87177; 87209; 87449; 87493; 87506; 87631; 87633; 93005; 94003; 94640; 94660; 94668; 99285; A4216; J2405

== ENCOUNTER → 2024-11-24 | Outpatient (CLI) | payer MEDICARE, SELFPAY ==
[2024-11-24 13:12] LABS: Cholesterol 167 mg/dL (<=200); High Density Lipoprotein 38 mg/dL; Low Density Lipoprotein Calc. 86 mg/dL; Triglycerides 212 mg/dL; Very Low Density Lipoprotein 42 mg/dL (5-40); cholesterol:hdl ratio screen 4.37
[2024-11-24 13:27] LABS: Microalbumin,Random Urine 53.5 mg/L (NO RANGE EST.); Microalbumin:Creatinine Ratio 408.4 mg/g CRE
== END | disposition home or self-care (01) ==
PROVIDERS: PCP Family Medicine; Visit Provider Family Medicine
DX: E11.9 Type 2 diabetes mellitus without complications (principal)
CPT/HCPCS: 36415; 80061; 82043; 82570

== ENCOUNTER → 2025-05-11 | Outpatient (CLI) | payer MEDICARE, SELFPAY ==
[2025-05-11 12:29] LABS: Hematocrit 41.5 % (40-54); Hemoglobin 13.5 g/dL (13.0-16.5); Immature Granulocytes Count 0.030 X10^3/uL (0.0-0.0); Mean Corp Hgb Conc 32.5 g/dL (32-36); Mean Corpuscular Volume 92.6 fL (80-94); Mean Platelet Vol. 10.9 fl (6.2-12.0); NRBC Flagged by Analyzer 0 % (0-5); Platelet Count 266 K/mm3 (150-450); RBC Distribution Width CV 13.1 % (11.6-14.6); RBC Distribution Width SD 44.3 fl (35.1-43.9); Red Blood Count 4.48 M/mm3 (4.6-6.2); White Blood Count 6.0 K/mm3 (4.4-11.0)
[2025-05-11 13:26] LABS: AST(SGOT) 20 U/L (<=37); Alanine Aminotransfer ALT/SGPT 23 U/L (<=46); Albumin, Serum 4.2 g/dL (3.4-4.8); Alkaline Phosphatase 43 U/L (40-129); Anion Gap 15 (5-15); BUN 27 mg/dL (4-19); BUN/Creat Ratio 16.1 RATIO (10-20); Calcium,Total 9.7 mg/dL (7.6-11.0); Carbon Dioxide 20.3 mmol/L (21.0-32.0); Chloride 105 mmol/L (98-108); Globulin 2.9 g/dL (2.2-4.2); Glucose 183 mg/dL (70-99); PSA,Total- Diagnostic 2.23 ng/mL (0.00-4.00); Potassium 4.0 mmol/L (3.3-5.1); Vitamin B12 1211 pg/mL (180-914)
== END | disposition home or self-care (01) ==
LOC: BFHLAB 08:53
PROVIDERS: PCP Family Medicine; Visit Provider Family Medicine
DX: I12.9 Hypertensive chronic kidney disease with stage 1 through stage 4 chronic kidney disease, or unspecified chronic kidney disease (principal); E11.22 Type 2 diabetes mellitus with diabetic chronic kidney disease; N18.31 Chronic kidney disease, stage 3a; D51.9 Vitamin B12 deficiency anemia, unspecified; R97.20 Elevated prostate specific antigen [PSA]
CPT/HCPCS: 36415; 80053; 82607; 84153; 85025